=== PATIENT | male | born 1965 | race Caucasian/White ===

== ENCOUNTER 2023-09-09 09:06 | Outpatient (OUT) | payer BC, SELFPAY ==
--- NOTE | 2023-09-09 | XR_ITS ---
[address] [address] Patient Name: JOHN SOTO MRN: [id number] date: 1965 Sex: M Assigned Patient Location: RAD Current Patient Location: RAD Accession/Order Number: [id number] Exam Date: 09/09/2023 09:15 Report Date: 09/09/2023 09:54 At the request of: KURTIS MCDONALD Procedure: XR foot RT min 3V PROCEDURE: XR foot RT min 3V COMPARISON: 08/16/2023 HISTORY: RIGHT FOOT PAIN FINDINGS: BONES:Stable oblique extra-articular fracture involving the mid to distal diaphysis of the fifth metatarsal with distraction up to 4 mm. No interval evidence of healing with no bony bridging. No new fracture or dislocation. Remote osteotomy of the first metatarsal with 2 screws. Lateral subluxation of the distal first toe overlapping the second and third toes SOFT TISSUES:Negative. No visible soft tissue swelling. EFFUSION:None visible. OTHER: Negative. XR/XR foot RT min 3V IMPRESSION: Stable distracted extra-articular fracture of the fifth metatarsal with no interval signs of healing Electronically authenticated by: DARREN MENDOZA Date: 09/09/2023 09:54
--- OUTSIDE RECORDS SUMMARY | 2023-09-09 09:09 | XMS_ITS | CCD ---
Author Name Unknown Address [address] [place] [address] Organization [facility] Care Team Providers Care Toe Laster Name Role Phone MD Nikhil Casiano Primary Care Provider [phone] JASON Shanks Attending Provider [phone] MD Natan Tate Attending Provider JASON Shanks Referring Provider Marcell Brown Unavailable MD Nikhil Casiano Primary Care Provider JASON Shanks Attending Provider JSAON Shanks Referring Provider MD Marcell Brown Attending Provider [phone] MD Natan Tate Attending Provider Marcell Brown. Attending Unavailable Marcell Brown Admitting Unavailable Nikhil Casiano Primary Care Unavailable MISTY DAY Attending Unavailable MISTY DAY Referring Unavailable Allergies Allergy Classification Reported Allergen(s) Allergy Type Date of Onset Reaction(s) Facility (7 sources) Penicillins; Translations: [Penicillins] Allergy to substance 9 [facility] (1 source) Penicillin Drug Allergy Unknown [facility] Other Medications Current Medications Medication Drug Class(es) Dates Sig (Normalized) Sig (Original) cholecalciferol 0.125 mg oral tablet (4 sources) Vitamin D Start: 06-11-2022 take 1 tablet by mouth once daily Cholecalciferol (Vitamin D3) (Vitamin D3) 125 mcg (5,000 unit) Tablet Active 125 MCG PO Daily June 10, 2022 11:00pm Problems Problem Classification Problem Date Documented Da te Episodic/Chronic Anal and rectal conditions (1 source) Anal and rectal polyp; Translations: [Rectal polyp] Episodic Diseases of white blood cells (5 sources) Leukopenia; Translations: [Decreased white blood cell count, unspecified] 06-11-2022 Chronic Diverticulosis and diverticulitis (1 source) Diverticular disease of colon; Translations: [Diverticulosis of intestine, part unspecified, without perforation or abscess without bleeding] Chronic Hemorrhoids (1 source) Hemorrhoids; Translations: [Unspecified hemorrhoids] Episodic Nutritional deficiencies (3 sources) Cobalamin deficiency; Translations: [Deficiency of other specified B group vitamins] 07-02-2022 Episodic Other screening for suspected conditions (not mental disorders or infectious disease) (6 sources) Patient encounter status; Translations: [Encounter for screening for malignant neoplasm of colon] 11-20-2018 Episodic Residual codes; unclassified (1 source) Sleep apnea; Translations: [Sleep apnea, unspecified] Chronic Residual codes; unclassified (1 source) Obstructive sleep apnea syndrome; Translations: [Obstructive sleep apnea (adult) (pediatric)] Chronic Residual codes; unclassified (1 source) Obstructive sleep apnea (adult) (pediatric) Chronic Residual codes; unclassified (1 source) Obstructive sleep apnea (adult)(pediatric); Translations: [Obstructive sleep apnea (adult) (pediatric)] Onset: 07-03-2022 Chronic Results Test Name Value Interpretation Reference Range Facility XR FOOT 3+ VIEWS RIGHTon XR FOOT 3+ VIEWS RIGHT EXAMINATION: XR F OOT 3+ VIEWS RIGHT, 08/16/2023 12:03 PM CLINICAL HISTORY: R/o fracture COMPARISON: None RIGHT FOOT FINDINGS: There are 2 metallic screws in the distal first metatarsal. There is a hallux valgus deformity. There are no lytic or sclerotic bone lesions. There is an oblique mildly displaced fracture of the fifth metatarsal. The joint spaces are preserved.. The soft tissues are within normal limits. There are no radiopaque foreign bodies in the soft tissues. IMPRESSION: There is a fracture of the fifth metatarsal. ELECTRONICALLY SIGNED BY: Daniel Vines MD Normal Not Available Albumin [Mass/volume] in Ser um or PlasmaOrdered By: Natan Tate on 10-18-2022 Albumin [Mass/Vol] 4.0 g/dL 2.9-4.4 [facility] IgA [Mass/volume] in Serum o r PlasmaOrdered By: Natan Tate on 06-11-2022 IgA [Mass/Vol] 173 mg/dL 90-386 [facility] IgG [Mass/volume] in Serum o r PlasmaOrdered By: Natan Tate on 06-11-2022 IgG [Mass/Vol] 834 mg/dL 603-1613 [facility] IgM [Mass/volume] in Serum o r PlasmaOrdered By: Natan Tate on 06-11-2022 IgM [Mass/Vol] 39 mg/dL 20-172 [facility] Comment on above: Performed at: [id number] [place] [address] [id number] Director: See Canseco PhD, Phone: [phone] Immunoglobulin light chains. kappa.free [Mass/volume] in SerumOrdered By: Natan Tate on 06-11-2022 Immunoglobulin light chains.kappa.free (S) [Mass/Vol] 15.9 mg/L 3.3-19.4 [facility] Immunoglobulin light chains. kappa.free/Immunoglobulin light chains.lambda.free [MassOrdered By: Natan Tate on 06-11-2022 Immunoglobulin light chains.kappa.free/Immuno globulin light chains.lambda.free (S) [Mass ratio] 1.75 0.26-1.65 [facility] Comment on above: Performed at: [id number] [place] [address] [id number] Director: See Canseco PhD, Phone: [phone] Immunoglobulin light chains. lambda.free [Mass/volume] in Serum or PlasmaOrdered By: Natan Tate on 06-11-2022 Immunoglobulin light chains.lambda.free [Mass/Vol] 9.1 mg/L 5.7-26.3 [facility] Laboratory - Chemistry and C hemistry - challengeOrdered By: Natan Tate on 06-11-2022 Cobalamin (Vitamin B12) [Mass/Vol] 245 pg/mL 180-914 [facility] No Panel InformationOrdered By: Natan Tate on 06-11-2022 Protein Electrophoresis M-Presley Not observed g/dL Not Observed [facility] Protein Electrophoresis Note See comment . [facility] Comment on above: Protein electrophore sis scan will follow via computer,mail, or ribbon hanking machine operator delivery.Performed at: [facility] [address] [id number] Director: See Canseco PhD, Phone: [phone] Serum Immunofixation See comment . [facility] Comment on above: No monoclonality det ected. Protein [Mass/volume] in Ser um or PlasmaOrdered By: Natan Tate on 06-11-2022 Protein [Mass/Vol] 6.7 g/dL 6.0-8.5 [facility] Serum globulin measurement ( mass/volume)Ordered By: Natan Tate on 06-11-2022 Globulin (S) [Mass/Vol] 2.7 g/dL 2.2-3.9 [facility] Serum or plasma albumin/glob ulin mass ratioOrdered By: Natan Tate on 06-11-2022 Albumin/Globulin [Mass ratio] 1.5 {ratio} 0.7-1.7 [facility] Serum or plasma alpha 1 glob ulin measurement by electrophoresis (mass/volume)Ordered By: Natan Tate on 06-11-2022 Alpha 1 globulin Elph [Mass/Vol] 0.2 g/dL 0.0-0.4 [facility] Serum or plasma alpha 2 glob ulin measurement by electrophoresis (mass/volume)Ordered By: Natan Tate on 06-11-2022 Alpha 2 globulin Elph [Mass/Vol] 0.7 g/dL 0.4-1.0 [facility] Serum or plasma beta globuli n measurement by electrophoresis (mass/volume)Ordered By: Natan Tate on 06-11-2022 Beta globulin Elph [Mass/Vol] 1.0 g/dL 0.7-1.3 [facility] Serum or plasma gamma globul in measurement by electrophoresis (mass/volume)Ordered By: Natan Tate on 06-11-2022 Gamma globulin Elph [Mass/Vol] 0.8 g/dL 0.4-1.8 [facility] Basophils Auto (Bld) [#/Vol] Ordered By: Ana Shanks on 06-05-2022 Basophils (Bld) [#/Vol] 0.0 10*3/uL 0.0-0.2 [facility] Basophils/100 WBC Auto (Bld) Ordered By: Ana Shanks on 06-05-2022 Basophils/100 WBC (Bld) 0.7 % . [facility] Eosinophils Auto (Bld) [#/Vo l]Ordered By: Ana Shanks on 06-05-2022 Eosinophils (Bld) [#/Vol] 0.0 10*3/uL 0.0-0.45 [facility] Eosinophils/100 WBC Auto (Bl d)Ordered By: Ana Shanks on 06-05-2022 Eosinophils/100 WBC (Bld) 1.4 % . [facility] Erythrocyte distribution wid th Auto (RBC) [Ratio]Ordered By: Ana Shanks on 06-05-2022 Erythrocyte distribution width (RBC) [Ratio] 12.2 % 12.0-14.8 [facility] Hematocrit Auto (Bld) [Volum e fraction]Ordered By: Ana Shanks on 06-05-2022 Hematocrit (Bld) [Volume fraction] 41.6 % 38.8-50.0 [facility] Hemoglobin [Mass/volume] in BloodOrdered By: Ana Shanks on 06-05-2022 Hemoglobin (Bld) [Mass/Vol] 14.1 g/dL 13.0-17.0 [facility] - Hematology and Cell countsOrdered By: Ana Shanks on 06-05-2022 Nucleated RBC/100 WBC (Bld) [Ratio] 0.1 % 0-0.5 [facility] Leukocytes [#/volume] in Blo od by Automated countOrdered By: Ana Shanks on 06-05-2022 WBC (Bld) [#/Vol] 3.5 10*3/uL 4.5-11.0 [facility] Lymphocytes Auto (Bld) [#/Vo l]Ordered By: Ana Shanks on 06-05-2022 Lymphocytes (Bld) [#/Vol] 0.9 10*3/uL 1.00-4.8 [facility] Lymphocytes/100 WBC Auto (Bl d)Ordered By: Ana Shanks on 06-05-2022 Lymphocytes/100 WBC (Bld) 26.4 % . [facility] MCH Auto (RBC) [Entitic mass ]Ordered By: Ana Shanks on 06-05-2022 MCH (RBC) [Entitic mass] 32.2 pg 27.5-35.2 [facility] MCHC Auto (RBC) [Mass/Vol]Or dered By: Ana Shanks on 06-05-2022 MCHC (RBC) [Mass/Vol] 33.9 g/dL 32.5-35.6 [facility] MCV Auto (RBC) [Entitic vol] Ordered By: Ana Shanks on 06-05-2022 MCV (RBC) [Entitic vol] 94.9 fL 83.5-101 [facility] Monocytes Auto (Bld) [#/Vol] Ordered By: Ana Shanks on 06-05-2022 Monocytes (Bld) [#/Vol] 0.3 10*3/uL 0.0-0.8 [facility] Monocytes/100 WBC Auto (Bld) Ordered By: Ana Shanks on 06-05-2022 Monocytes/100 WBC (Bld) 7.5 % . [facility] Neutrophils Auto (Bld) [#/Vo l]Ordered By: Ana Shanks on 06-05-2022 Neutrophils (Bld) [#/Vol] 2.2 10*3/uL 1.8-7.7 [facility] Neutrophils/100 WBC Auto (Bl d)Ordered By: Ana Shanks on 06-05-2022 Neutrophils/100 WBC (Bld) 64.0 % . [facility] Platelet mean volume Auto (B ld) [Entitic vol]Ordered By: Ana Shanks on 06-05-2022 Platelet mean volume (Bld) [Entitic vol] 7.0 fL 6.6-10.1 [facility] Platelets Auto (Bld) [#/Vol] Ordered By: Ana Shanks on 10-12-2022 Platelets (Bld) [#/Vol] 263 10*3/uL 150-450 [facility] RBC Auto (Bld) [#/Vol]Ordere d By: Ana Shanks on 06-05-2022 RBC (Bld) [#/Vol] 4.38 10*6/uL 3.90-5.[address] [facility] Albumin [Mass/volume] in Ser um or PlasmaOrdered By: Ana Shanks on 05-22-2022 Albumin [Mass/Vol] 4.2 g/dL 3.2-5.5 [facility] Basophils Auto (Bld) [#/Vol] Ordered By: Ana Shanks on 05-22-2022 Basophils (Bld) [#/Vol] 0.0 10*3/uL 0.0-0.2 [facility] Basophils/100 WBC Auto (Bld) Ordered By: Ana Shanks on 05-22-2022 Basophils/100 WBC (Bld) 0.6 % . [facility] Cholesterol [Mass/volume] in Serum or PlasmaOrdered By: Ana Shanks on 05-22-2022 Cholesterol [Mass/Vol] 218 mg/dL 140-200 [facility] Comment on above: Chol less than 200 m g/dl low riskChol 201-239 mg/dl borderline riskChol 240 mg/dl and greater high risk Cholesterol in LDL Calc [Mas s/Vol]Ordered By: Ana Shanks on 05-22-2022 Cholesterol in LDL [Mass/Vol] 141 mg/dL 0-100 [facility] Comment on above: LDL ATP III CLASSIFI CATIONLDL less than 100 mg/dL OptimalLDL 100-129 mg/dL Near or above optimalLDL 130-159 mg/dL Borderline highLDL 160-189 mg/dL HighLDL greater than 189 mg/dL Very high Cholesterol in VLDL Calc [Ma ss/Vol]Ordered By: Ana Shanks on 05-22-2022 Cholesterol in VLDL [Mass/Vol] 15 mg/dL [facility] Creatinine and Glomerular fi ltration rate.predicted panel (S/P/Bld)Ordered By: Ana Shanks on 05-22-2022 Creatinine [Mass/Vol] 0.95 mg/dL 0.64-1.27 [facility] Eosinophils Auto (Bld) [#/Vo l]Ordered By: Ana Shanks on 05-22-2022 Eosinophils (Bld) [#/Vol] 0.0 10*3/uL 0.0-0.45 [facility] Eosinophils/100 WBC Auto (Bl d)Ordered By: Ana Shanks on 05-22-2022 Eosinophils/100 WBC (Bld) 1.2 % . [facility] Erythrocyte distribution wid th Auto (RBC) [Ratio]Ordered By: Ana Shanks on 05-22-2022 Erythrocyte distribution width (RBC) [Ratio] 12.7 % 12.0-14.8 [facility] Estimated glomerular filtrat ion rate (GFR) non- AmericanOrdered By: Ana Shanks on 05-22-2022 GFR/1.73 sq M.predicted among non-blacks MDRD (S/P/Bld) [Vol rate/Area] > 60 mL/Min [facility] Globulin Calc (S) [Mass/Vol] Ordered By: Ana Shanks on 05-22-2022 Globulin (S) [Mass/Vol] 2.4 g/dL [facility] Hematocrit Auto (Bld) [Volum e fraction]Ordered By: Ana Shanks on 05-22-2022 Hematocrit (Bld) [Volume fraction] 45.7 % 38.8-50.0 [facility] Hemoglobin [Mass/volume] in BloodOrdered By: Ana Shanks on 05-22-2022 Hemoglobin (Bld) [Mass/Vol] 15.1 g/dL 13.0-17.0 [facility] - Hematology and Cell countsOrdered By: Ana Shanks on 05-22-2022 Nucleated RBC/100 WBC (Bld) [Ratio] 0.2 % 0-0.5 [facility] Leukocytes [#/volume] in Blo od by Automated countOrdered By: Ana Shanks on 05-22-2022 WBC (Bld) [#/Vol] 3.5 10*3/uL 4.5-11.0 [facility] Lymphocytes Auto (Bld) [#/Vo l]Ordered By: Ana Shanks on 05-22-2022 Lymphocytes (Bld) [#/Vol] 1.1 10*3/uL 1.00-4.8 [facility] Lymphocytes/100 WBC Auto (Bl d)Ordered By: Ana Shanks on 05-22-2022 Lymphocytes/100 WBC (Bld) 32.5 % . [facility] MCH Auto (RBC) [Entitic mass ]Ordered By: Ana Shanks on 05-22-2022 MCH (RBC) [Entitic mass] 31.8 pg 27.5-35.2 [facility] MCHC Auto (RBC) [Mass/Vol]Or dered By: Ana Shanks on 05-22-2022 MCHC (RBC) [Mass/Vol] 33.0 g/dL 32.5-35.6 [facility] MCV Auto (RBC) [Entitic vol] Ordered By: Ana Shanks on 05-22-2022 MCV (RBC) [Entitic vol] 96.2 fL 83.5-101 [facility] Monocytes Auto (Bld) [#/Vol] Ordered By: Ana Shanks on 05-22-2022 Monocytes (Bld) [#/Vol] 0.3 10*3/uL 0.0-0.8 [facility] Monocytes/100 WBC Auto (Bld) Ordered By: Ana Shanks on 05-22-2022 Monocytes/100 WBC (Bld) 8.3 % . [facility] Neutrophils Auto (Bld) [#/Vo l]Ordered By: Ana Shanks on 05-22-2022 Neutrophils (Bld) [#/Vol] 2.0 10*3/uL 1.8-7.7 [facility] Neutrophils/100 WBC Auto (Bl d)Ordered By: Ana Shanks on 05-22-2022 Neutrophils/100 WBC (Bld) 57.4 % . [facility] No Panel InformationOrdered By: Ana Shanks on 05-22-2022 Estimated GFR () > 60 mL/Min [facility] Comment on above: GFR estimated refere nce range: According to KDOQI guidelines, <60 ml/min/1.73m2 is sufficient to diagnose a patient with chronic kidney disease. Pharmacy Creatinine Clearance (Chem N/A [facility] Prostate Specific Antigen Screen 2.110 ng/mL 0.000-4.000 [facility] Platelet mean volume Auto (B ld) [Entitic vol]Ordered By: Ana Shanks on 05-22-2022 Platelet mean volume (Bld) [Entitic vol] 7.1 fL 6.6-10.1 [facility] Platelets Auto (Bld) [#/Vol] Ordered By: Ana Shanks on 05-22-2022 Platelets (Bld) [#/Vol] 276 10*3/uL 150-450 [facility] Protein [Mass/volume] in Ser um or PlasmaOrdered By: Ana Shanks on 05-22-2022 Protein [Mass/Vol] 6.6 g/dL 6.1-7.9 [facility] RBC Auto (Bld) [#/Vol]Ordere d By: Ana Shanks on 05-22-2022 RBC (Bld) [#/Vol] 4.75 10*6/uL 3.90-5.[address] [facility] Serum or plasma alanine bueno otransferase measurement without P-5'-P (enzymatic activiOrdered By: Ana Shanks on 05-22-2022 ALT No additional P-5'-P [Catalytic activity/Vol] 18 U/L 10-60 [facility] Serum or plasma albumin/glob ulin mass ratioOrdered By: Ana Shanks on 05-22-2022 Albumin/Globulin [Mass ratio] 1.8 {ratio} [facility] Serum or plasma alkaline joselo sphatase measurement (enzymatic activity/volume)Ordered By: Ana Shanks on 05-22-2022 ALP [Catalytic activity/Vol] 36 U/L 32-92 [facility] Serum or plasma anion gap de terminationOrdered By: Ana Shanks on 05-22-2022 Anion gap [Moles/Vol] 13.7 mmol/L 6.0-15.[address] [facility] Serum or plasma aspartate am inotransferase measurement (enzymatic activity/volume)Ordered By: Ana Shanks on 05-22-2022 AST [Catalytic activity/Vol] 21 U/L 10-42 [facility] Serum or plasma calcium melissa urement (mass/volume)Ordered By: Ana Shanks on 05-22-2022 Calcium [Mass/Vol] 9.5 mg/dL 8.2-10.2 [facility] Serum or plasma chloride aramis surement (moles/volume)Ordered By: Ana Shanks on 05-22-2022 Chloride [Moles/Vol] 100 mmol/L 95-114 [facility] Serum or plasma glucose melissa urement (mass/volume)Ordered By: Ana Shanks on 05-22-2022 Glucose [Mass/Vol] 120 mg/dL 70-100 [facility] Comment on above: ADA recommended refe rence rangeRandom Glucose Reference Range is dependent on time and content of last meal. Glucose of more than 200 mg/dL in a nonstressed, ambulatory subject supports the diagnosis of Diabetes Mellitus. Serum or plasma high density lipoprotein (HDL) cholesterol measurementOrdered By: Ana Shanks on 05-22-2022 Cholesterol in HDL [Mass/Vol] 61 mg/dL 29-71 [facility] Comment on above: HDL CHOL ATP-III CLA SSIFICATION Cardiovascular RiskHDL > or equal to 60 mg/dL LOWHDL < 40 mg/dL HIGH Serum or plasma potassium me asurement (moles/volume)Ordered By: Ana Shanks on 05-22-2022 Potassium [Moles/Vol] 4.1 mmol/L 3.5-5.1 [facility] Serum or plasma sodium measu rement (moles/volume)Ordered By: Ana Shanks on 05-22-2022 Sodium [Moles/Vol] 138 mmol/L 136-146 [facility] Serum or plasma total biliru bin measurement (mass/volume)Ordered By: Ana Shanks on 05-22-2022 Bilirubin [Mass/Vol] 0.7 mg/dL 0.3-1.2 [facility] Serum or plasma total carbon dioxide measurement (moles/volume)Ordered By: Ana Shanks on 05-22-2022 CO2 [Moles/Vol] 28.4 mmol/L 22.0-30.0 [facility] Serum or plasma total choles terol/high density lipoprotein (HDL) cholesterol mass ratOrdered By: Ana Shanks on 05-22-2022 Cholesterol.total/Choles terol in HDL [Mass ratio] 3.6 {ratio} <5.0 [facility] Serum or plasma urea nitroge n measurement (mass/volume)Ordered By: Ana Shanks on 05-22-2022 Urea nitrogen [Mass/Vol] 11 mg/dL 05-17 [facility] TSH DL <= 0.005 mIU/L QnOrde red By: Ana Shanks on 05-22-2022 TSH Qn 1.63 m[IU]/L 0.45-5.33 [facility] Thyroxine (T4) free [Mass/vo lume] in Serum or PlasmaOrdered By: Ana Shanks on 05-22-2022 Free T4 [Mass/Vol] 0.84 ng/dL 0.61-1.12 [facility] Triglyceride [Mass/volume] i n Serum or PlasmaOrdered By: Ana Shanks on 05-22-2022 Triglyceride [Mass/Vol] 79 mg/dL 35-149 [facility] Comment on above: TRIG ATP III CLASSIF ICATIONTRIG less than 150 mg/dL NormalTRIG 150-199 mg/dL Borderline highTRIG 200-500 mg/dL High TRIG greater than 500 mg/dL Very highStandard traceable to the Center for Disease Conrtrol and Prevention (CDC) test method. Vital Signs Date Time Vital Sign Value Performing Clinician Facility 07-03-2022 15:30-0500 Body height 185.42 cm Marcell Brown Other [facility] Other 07-03-2022 15:30-0500 Body mass index (BMI) [Ratio] 23.68 kg/m2 Marcell Brown Other [facility] Other 07-03-2022 15:30-0500 Body temperature 99.5 [degF] Marcell Brown Other [facility] Other 07-03-2022 15:30-0500 Body weight 81.42 kg Marcell Brown Other [facility] Other 07-03-2022 15:30-0500 Diastolic blood pressure 69 mm[Hg] Marcell Brown Other [facility] Other 07-03-2022 15:30-0500 SaO2% (BldA) [Mass fraction] 98 % Marcell Brown Other [facility] Other 07-03-2022 15:30-0500 Systolic blood pressure 106 mm[Hg] Marcell Brown Other [facility] Other 07-02-2022 09:27-0500 Body temperature 97.8 [degF] MD Nikhil Casiano Work Phone: [facility] 07-02-2022 09:27-0500 Body weight 80.73 kg MD Nikhil Casiano Work Phone: [facility] 07-02-2022 09:27-0500 Diastolic blood pressure 83 mm[Hg] MD Nikhil Casiano Work Phone: [facility] 07-02-2022 09:27-0500 Heart rate 56 /min MD Nikhil Casiano Work Phone: [facility] 07-02-2022 09:27-0500 Respiratory rate 16 /min MD Nikhil Casiano Work Phone: [facility] 07-02-2022 09:27-0500 SaO2% (BldA) [Mass fraction] 98 % MD Nikhil Casiano Work Phone: [facility] 07-02-2022 09:27-0500 Systolic blood pressure 122 mm[Hg] MD Nikhil Casiano Work Phone: [facility] 06-11-2022 09:22-0400 Body temperature 98 [degF] MD Nikhil Casiano Work Phone: [facility] 06-11-2022 09:22-0400 Body weight 81.19 kg MD Nikhil Casiano Work Phone: [facility] 06-11-2022 09:22-0400 Diastolic blood pressure 87 mm[Hg] MD Nikhil Casiano Work Phone: [facility] 06-11-2022 09:22-0400 Heart rate 54 /min MD Nikhil Casiano Work Phone: [facility] 06-11-2022 09:22-0400 Respiratory rate 16 /min MD Nikhil Casiano Work Phone: [facility] 06-11-2022 09:22-0400 SaO2% (BldA) [Mass fraction] 100 % MD Nikhil Casiano Work Phone: [facility] 06-11-2022 09:22-0400 Systolic blood pressure 139 mm[Hg] MD Nikhil Casiano Work Phone: [facility] 06-11-2022 09:03-0400 Body height 185.42 cm MD Nikhil Casiano Work Phone: [facility] Encounters Encounter Date Encounter Type Care Provider Facility Start: 08-16-2023 End: 08-17-2023 ambulatory MISTY DAY Not Available Start: 07-03-2022 End: 07-03-2022 Patient encounter procedure MD Nikhil Casiano Work Phone: [facility] Start: 07-03-2022 End: 07-03-2022 ambulatory MD Nikhil Casiano Work Phone: [facility] Work Phone: Start: 07-03-2022 Office outpatient ne w 30 minutes Marcell Brown [facility] Start: 07-02-2022 End: 07-02-2022 ambulatory MD Nikhil Casiano Work Phone: [facility] Work Phone: Start: 07-02-2022 End: 07-02-2022 Registered Recurring MD Nikhil Casiano Work Phone: [facility] Start: 06-18-2022 End: 06-18-2022 Patient encounter procedure MD Nikhil Casiano Work Phone: [facility] Start: 06-11-2022 End: 06-11-2022 ambulatory MD Nikhil Casiano Work Phone: [facility] Work Phone: Start: 06-11-2022 End: 06-11-2022 Registered Recurring MD Nikhil Casiano Work Phone: [facility] Start: 06-05-2022 End: 06-05-2022 ambulatory MD Nikhil Casiano Work Phone: [facility] Work Phone: Start: 06-05-2022 End: 06-05-2022 Patient encounter procedure MD Nikhil Casiano Work Phone: [facility] Start: 05-22-2022 End: 05-22-2022 Patient encounter procedure MD Nikhil Casiano Work Phone: [facility] Start: 05-13-2022 End: 05-13-2022 Patient encounter procedure MD Nikhil Casiano Work Phone: [facility] Procedures Date Procedure Procedure Detail Performing Clinician Start: 05-13-2022 Plain chest X-ray MD Tal Casiano Work Phone: Plan of Treatment Date Care Activity Detail Author Vitamin B12 measurement [facility] Payers Date Payer Category Payer Self-pay [id number] 2021 Unknown [id number] 1965 Unknown [id number] 1965 Unknown [id number] Private Health Insurance [employer] [id number] Unknown [id number] Social History Date Type Detail Facility Tobacco smoking status NHIS Unknown if ever smoked [facility] Work Phone: Start: 1965 Sex Assigned At Male [facility] Sex Assigned At Sex Assigned At Bir th [place] [employer] Other Evaluation note 07-03-2022 Note Date & Type Note Facility 07-03-2022 Evaluation note Encounter Date Diagnosis Assessment Notes Jun, Obstructive sleep apnea (ICD-10 - G47.33) Patient was referred for possible sleep apnea based on a history of intermittent snoring and persistent daytime fatigue. His home sleep test does show sleep apnea is indeed present, with an AHI that is bumping up against moderate range. There is some associated hypoxia as well. I reviewed these results with him and he expresses good understanding. However he is not sure he wants to pursue things any further. He reports that he feels well rested and states that he does not even snore every night he does not feel the fatigue is that bad and he does feel he can function well at baseline without treatment. I reviewed the medical and accident risks associated with untreated mild to moderate obstructive sleep apnea, including a statistical 50% increase in annual risk of heart attack and stroke we also discussed quality of life issues. I discussed treatment options in detail including oral appliance therapy, [facility] (though his AHI fell just below that threshold), and positive airway pressure treatment. After extensive discussion he states he just wants to think this over and does not want to make a follow-up appointment. We emphasized our availability if there is any way we can answer questions or be of any other assistance, and encouraged him to call if he did decide to go ahead with any form of treatment or had other questions Jun, Other The diagnosis of Sleep Apnea was reviewed in detail, and handout materials were provided. The patient expresses good understanding, We also reviewed the medical and accident risks associated with sleep apnea and excessive fatigue. The patient is advised to adhere to a proper sleep hygiene schedule and to assure adequate total sleep time; The patient was advised to continue efforts at progressive weight loss, including decreased overall caloric intake quantity and better food choices.The patient was advised to call or return any difficulties arise, including changes in symptoms and/or problems with treatment [facility] Other Consult note 06-11-2022 Note Date & Type Note Facility 06-11-2022 Consult note Note Date/Time June 11, 2022 2:51pm [facility] [place] [id number] Hem/Onc Consult Note - OP Signed Patient: John Hua MR#: [id number] : 1965 Acct:[id number] Age/Sex: 56 / M Type: REG RCR Copies to: MD Ana Jackson APRN, CNP~ HPI Date/Time of Service: Date of Service: 06/11/2022 Time of Service: 14:46 Referring Provider/PCP: Referring Provider: Ana Shanks APRN DEVELOPMENTAL EDUCATION INSTRUCTOR-C PCP: Nikhil Casiano MD - History of Present Illness Reason for Consultation: Leukopenia Chief Complaint: Patient is here today for a referral from Ana Shanks CNP for low white blood cell count HPI: Patient is a 56-year-old white gentleman man seen today for evaluation and management of leukopenia. Patient stated that he felt ill and thoughts he had COVID infection. He recovered after 3 days. CBC showed leukopenia without any other cytopenias. Repeat CBC few weeks later showed similar results. Going back in 2019 that was very similar leukopenia that resolved after few months. Patient is not taking medications other than vitamin D3. He certainly has not taking any medications known to cause this or other cytopenias. He has no significant history of alcohol consumption. Extensive review of systems is negative for connective tissue disorder. He has no symptoms of hypercalcemia. No symptoms or lab abnormalities to suggest chronic viral infection including viral hepatitis. No increased or significant intake of nonsteroidal anti-inflammatory medications [facility] - Medical History Medical History: Medical History (Last Reviewed 06/11/22 @ 09:13 by Jennifer Baires) No pertinent past medical history - Surgical History Surgical History: Surgical History (Last Updated 06/11/22 @ 09:13 by Jennifer Baires) H/O shoulder surgery S/P cervical disc replacement S/P foot surgery, right - Family History Family History: Family History (Last Updated 06/11/22 @ 09:15 by Jennifer Baires) Father Lung cancer Mother COPD (chronic obstructive pulmonary disease) Grandparent Cancer Grandchild No problems noted. Brother Heart attack Sister Diabetes - Social History Tobacco Type: cigarettes Substance Use Type: None Social History Comments: lives with his and daughter Home Medications & Allergies Allergies Penicillins Allergy (Verified 06/11/22 09:11) Rash Home Medications cholecalciferol (vitamin D3) 125 mcg (5,000 unit) tablet (Vitamin D3) 125 mcg PODAILY 06/11/22 [History Confirmed 06/11/22] Subjective Data Subjective/ROS - Narrative: CONSTITUTIONAL: No weight loss, fever, chills, weakness or fatigue. HEENT: Eyes: No visual loss, blurred vision, double vision or yellow sclerae. Ears, Nose, Throat: No hearing loss, epistaxis. SKIN: No rash or itching. CARDIOVASCULAR: No chest pain, chest pressure or chest discomfort. No palpitations or edema. RESPIRATORY: No shortness of breath, cough or hemoptysis. GASTROINTESTINAL: No dysphagia, nausea, vomiting or diarrhea. No abdominal pain,melena, hematochezia. GENITOURINARY: No dysuria, urinary frequency or urgency. NEUROLOGICAL: No headache, dizziness, syncope, numbness or tingling in the extremities. MUSCULOSKELETAL: No muscle, back pain, joint pain or stiffness. HEMATOLOGIC: No bleeding or bruising. LYMPHATICS: No enlarged nodes. PSYCHIATRIC: No history of depression or anxiety. ENDOCRINOLOGIC: No reports of sweating, cold or heat intolerance. No polyuria orpolydipsia. ALLERGIES: No history of asthma, hives, eczema or rhinitis. Objective - Height/Weight Height/Weight: Height 6 ft 1 in Weight 81.193 kg - Vital Signs Vital Signs: 06/11/22 09:22 Temperature 98.0 F Pulse Rate [Left Brachial] 54 L Respiratory Rate 16 Blood Pressure [Left Arm] 139/87 02 Sat by Pulse Oximetry 100 Oxygen Delivery Method Room Air Physical Exam Narrative: GENERAL APPEARANCE: Well developed, well nourished, in no acute distress. SKIN: Inspection of the skin reveals no rashes, ulcerations or petechiae. HEENT: The sclerae were anicteric and conjunctivae were pink and moist. EOMI, PERRLA. The oral mucosa is moist and clear. NECK: Supple and symmetric. There was no thyroid enlargement, and no tenderness,or masses were felt. CHEST: Normal contour without any kyphoscoliosis. LUNGS: Normal breath sounds on auscultation without rales, rhonchi, or crackles. CARDIOVASCULAR: S1 and S2, regular rate and rhythm, no murmurs, gallops, rubs. ABDOMEN: Soft, nontender, bowel sounds normal. No hepatosplenomegaly. No mass palpated. LYMPH NODES: No lymphadenopathy was appreciated in the neck, axillae or groin. MUSCULOSKELETAL: Gait was normal. There was no tenderness or effusions noted. Muscle strength and tone were normal. EXTREMITIES: No cyanosis, clubbing or edema. NEUROLOGIC: Alert and oriented x 3. Normal affect. Gait was normal. Sensation totouch was normal. - ECOG Performance Status ECOG Score: 0 Results - Labs Labs: Labs - Last 7 Days 06/11/22 10:23: Vitamin B12 245 Assessment and Plan (1) Leucopenia Mild with no associated neutropenia and no other cytopenias. We went over the differential diagnosis and possibilities. It could be due to transient viral infection which explains its findings in 2019 although he does not remember circumstances at the time. Or it could be chronic idiopathic leukopenia that normalizes on the stat full situations. Of medical conditions we will try noninvasive testing including B12 level and possibility of plasma cell dyscrasia; either as unlikely. We also discussed possibility of MDS which is always present. Would be unusual for just 1 cell line and such stability over 3years but that does not exclude it. Regardless I would not recommend bone marrow biopsy which is needed for this entity. To begin with the yield is low, treatment is mostly supportive which is not required in his case since he is notanemic. The only potentially curative treatment in MDS is bone marrow transplant which is only indicated in high-grade MDS. If this is MDS which is to begin with unlikely would be very low-grade MDS. In other words I would justobserve. If there is a possibility of transient viral infection we will recheckhis CBC in 3 to 4 weeks expecting improvement. 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 His PCP can keep an eye on his CBC and initially every 6 months for a year then every 12 months. If there is worsening in the WBC specially in the differential which has been excellent thus far or other cytopenias we will refer him back to hematology. Patient showed very good understanding and appreciation and he will return to office as needed - Time with Patient Coordination of Care & Counseling Time: Greater than 50% of time spent with patient was for coordination of care (as documented) and [id number] counseling of patient and/or family. Dictated By: Natan Tate MD DD/ 1446 Signed By: <Electronically signed by Natan Tate MD> 06/11/22 1459 [facility] Work Phone: Evaluation note Note Date & Type Note Facility Evaluation note No assessment information availa ble [facility] Work Phone: Evaluation note Note Date & Type Note Facility Evaluation note Diagnosis Onset Date Leucopenia acute [facility] Work Phone: Evaluation note Note Date & Type Note Facility Evaluation note Diagnosis Onset Date B12 deficiency acute Leucopenia acute [facility] Work Phone: History general Narrative - Reported Note Date & Type Note Facility History general Narrative - Reported Type Medical History Pneumothorax Medical History Hyperlipidemia Surgical History Back Surgery Surgical History Hammertoe Surgery Surgical History neck Surgical History shoulder Surgical History lung Surgical History toe Hospitalization History see above 2009 [facility] Other Progress note Note Date & Type Note Facility Progress note Note Date/Time July 02, 2022 9:30am [facility] at [address] [address] Hem/Onc Follow Up Note - OP Signed Patient: Jonh Hua MR#: [id number] : 1965 Acct:[id number] Age/Sex: 56 / M Type: REG RCR Copies to: MD Ana Jackson, STEAMER TENDER, FIELD SUPERVISOR~ Subjective Date/Time of Service: Date of Service: 07/02/2022 Time of Service: 09:30 Chief Complaint: Patient is here today for a follow up visit for leukopenia HPI: 06/11/22 consult Patient is a 56-year-old white gentleman man seen today for evaluation and management of leukopenia. Patient stated that he felt ill and thoughts he had COVID infection. He recovered after 3 days. CBC showed leukopenia without any other cytopenias. Repeat CBC few weeks later showed similar results. Going back in 2019 that was very similar leukopenia that resolved after few months. Patient is not taking medications other than vitamin D3. He certainly has not taking any medications known to cause this or other cytopenias. He has no significant history of alcohol consumption. Extensive review of systems is negative for connective tissue disorder. He has no symptoms of hypercalcemia. No symptoms or lab abnormalities to suggest chronic viral infection including viral hepatitis. No increased or significant intake of nonsteroidal anti-inflammatory medications 07/02/22 He continues with fatigue and can get winded going up flights of stairs otherwise he denies complaints paraprotein eval negative, b12 low PMFSH - Medical History Medical History: Medical History (Last Reviewed 06/11/22 @ 09:13 by Jennifer Baires) No pertinent past medical history - Surgical History Surgical History: Surgical History (Last Updated 06/11/22 @ 09:13 by Jennifer Baires) H/O shoulder surgery S/P cervical disc replacement S/P foot surgery, right - Family History Family History: Family History (Last Updated 06/11/22 @ 09:15 by Jennifer Baires) Father Lung cancer Mother COPD (chronic obstructive pulmonary disease) Grandparent Cancer Grandchild No problems noted. Brother Heart attack Sister Diabetes - Social History Tobacco Type: cigarettes Substance Use Type: None Social History Comments: lives with his and daughter Home Medications & Allergies Allergies Penicillins Allergy (Verified 07/02/22 09:26) Rash Home Medications cholecalciferol (vitamin D3) 125 mcg (5,000 unit) tablet (Vitamin D3) 125 mcg PODAILY 06/11/22 [History Confirmed 07/02/22] Objective - Height/Weight Height/Weight: Height 6 ft 1 in Weight 80.739 kg - Vital Signs Vital Signs: 07/02/22 09:27 Temperature 97.8 F Pulse Rate [Left Brachial] 56 L Respiratory Rate 16 Blood Pressure [Left Arm] 122/83 02 Sat by Pulse Oximetry 98 Oxygen Delivery Method Room Air Assessment and Plan (1) Leucopenia Mild with no associated neutropenia and no other cytopenias. We went over the differential diagnosis and possibilities. It could be due to transient viral infection which explains its findings in 2019 although he does not remember circumstances at the time. Or it could be chronic idiopathic leukopenia that normalizes on the stat full situations. Of medical conditions we will try noninvasive testing including B12 level and possibility of plasma cell dyscrasia; either as unlikely. We also discussed possibility of MDS which is always present. Would be unusual for just 1 cell line and such stability over 3 years but that does not exclude it. Regardless I would not recommend bone marrow biopsy which is needed for this entity. To begin with the yield is low, treatment is mostly supportive which is not required in his case since he is notanemic. The only potentially curative treatment in MDS is bone marrow transplant which is only indicated in high-grade MDS. If this is MDS which is to begin with unlikely would be very low-grade MDS. In other words I would justobserve. If there is a possibility of transient viral infection we will recheckhis CBC in 3 to 4 weeks expecting improvement. 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 His PCP can keep an eye on his CBC and initially every 6 months for a year then every 12 months. If there is worsening in the WBC specially in the differential which has been excellent thus far or other cytopenias we will refer him back to hematology. Patient showed very good understanding and appreciation and he will return to office as needed 07/02/22- His paraprotein evaluation was essentially negative with no monoclonality detected. His K/L ratio was slightly elevated but not concerning. He will follow-up only as needed, and will have routine lab work done with his PCP moving forward. Per previous recommendations, would do CBC at 6 months and 1year, then yearly after that. If his white blood cells drop or other cell line abnormalities develop, he should return to see us. (2) B12 deficiency Vitamin B12 level low on 06/11/22 Given that he will only follow with us PRN, we recommend he initiate monthly [id number] with his primary care office. - Time with Patient Coordination of Care & Counseling Time: Greater than 50% of time spent with patient was for coordination of care (as documented) and [id number] counseling of patient and/or family. Dictated By: Avril Haines APRN DD/ 9 Signed By: <Electronically signed by JASON Haines> 07/02/22 0957 [facility] Work Phone: Chief Complaint and Reason for Visit Chief Complaint J43.9 J44.9 R07.9 Chief Complaint J43.9 J44.9 R07.9 R00.1 Z83.3 Z13.220 Z12.5 R53.83 D72.819 Chief Complaint J43.9 J44.9 R07.9 R00.1 Z83.3 Z13.220 Z12.5 R53.83 D72.819 Abnormal white blood cells Chief Complaint J43.9 J44.9 R07.9 R00.1 Z83.3 Z13.220 Z12.5 R53.83 D72.819 r06.89 g47.19 Abnormal white blood cells Reason for Visit Leucopenia Chief Complaint J43.9 J44.9 R07.9 R00.1 Z83.3 Z13.220 Z12.5 R53.83 D72.819 r06.89 g47.19 Abnormal white blood cells r06.89 g47.19 Reason for Visit B12 deficiency Leucopenia Advance Directives No Advanced Directives Records Found Advance Directive Response Recorded Date/ Time Advance Directives No November 16 8:29am Advance Directive Response Recorded Date/ Time Advance Directives No November 16 7:29am Family History No Family History Records Found Relationship Condition Age at Onset Recorded Date/T nadya father Malignant neoplasm of lung Unknown Not Specified Chronic obstructive pulmonary disease Un known grandparent Malignant neoplasm Unknown brother Myocardial infarction Unknown sister Diabetes mellitus Unknown Summary Purpose Additional Source Comments Care Teams (unrecognized sec tion and content) Team Status: Inactive Member Role Status Dates Nikhil Casiano MD Primary Care Provider Active Ana Shanks APRN DEVELOPMENTAL EDUCATION INSTRUCTOR-C Attending Provider Active Team Status: Active Member Role Status Dates Nikhil Casiano MD Primary Care Provider Active Team Status: Active Member Role Status Dates Nikhil Casiano MD Primary Care Provider Active Natan Tate MD Attending Provider Active Ana Shanks APRN DEVELOPMENTAL EDUCATION INSTRUCTOR-Rosario Referring Provider Active Team Status: Inactive Member Role Status Dates Nikhil Casiano MD Primary Care Provider Active JASON Nick Referring Provider Active Marcell Brown MD Attending Provider Active Team Status: Inactive Member Role Status Dates Nikhil Casiano MD Primary Care Provider Active Marcell Brown MD Attending Provider Active Goals (unrecognized section and content) Goals may be documented in a n alternate sectionGoals may be documented in an alternate sectionGoals may be documented in an alternate sectionNo InformationGoals may be documented in an alternate sectionGoals may be documented in an alternate sectionGoals may be documented in an alternate section (unrecognized sect ion and content) No Status Records FoundNo Status Records Found INFORMATION SOURCE (unrecogn ized section and content) DATE CREATED AUTHOR 08/09/2023 [facility] DATE CREATED AUTHOR AUTHOR'S ORGANIZ ATION 08/21/2023 [facility] EPIC FOR RECORDS PERTAINING TO PATIENTS WHO ARE OR HAVE BEEN ENROLLED IN A CHEMICAL DEPENDENCY/SUBSTANCEABUSE PROGRAM, SOME INFORMATION MAY BE OMITTED. This clinical summary was aggregated from multiple sources. Caution should be exercised in using it in the provision of clinical care. This summary normalizes information from multiple sources, and as a consequence, information in this document may materially change the coding, format and clinical context of patient data. In addition, data may be omitted in some cases. CLINICAL DECISIONS SHOULD BE BASED ON THE PRIMARY CLINICAL RECORDS. [facility] [employer] provides no warranty or guarantee of the accuracy or completeness of information in this document.
== END 2023-09-09 09:07 | disposition home or self-care (01) ==
LOC: RAD 09:06
PROVIDERS: Visit Provider Podiatrist Foot & Ankle Surgery
DX: M79.671 Pain in right foot (principal); S92.351G Displaced fracture of fifth metatarsal bone, right foot, subsequent encounter for fracture with delayed healing
CPT/HCPCS: 73630

== ENCOUNTER 2023-10-01 14:10 | Outpatient (OUT) | payer BC, SELFPAY ==
--- NOTE | 2023-10-01 | XR_ITS ---
The [address] [address] Patient Name: JOHN SOTO MRN: [id number] date: 1965 Sex: M Assigned Patient Location: RAD Current Patient Location: RAD Accession/Order Number: [id number] Exam Date: 10/01/2023 14:28 Report Date: 10/01/2023 15:42 At the request of: KURTIS MCDONALD Procedure: XR foot RT min 3V PROCEDURE: XR foot RT min 3V COMPARISON: 09/09/2023, 08/16/2023 HISTORY: RIGHT FOOT PAIN FINDINGS: BONES:Stable oblique extra-articular fracture involving the mid to distal diaphysis of the fifth metatarsal with distraction up to 4 mm. No bony bridging is observed. Remote osteotomy and screw placement along the distal diaphysis and head of the first metatarsal. Valgus of the first toe with overlap of the second and third toes SOFT TISSUES:Negative. No visible soft tissue swelling. EFFUSION:None visible. OTHER: Negative. XR/XR foot RT min 3V IMPRESSION: Stable fifth metatarsal fracture with no signs of healing Electronically authenticated by: DARREN MENDOZA Date: 10/01/2023 15:42
--- OUTSIDE RECORDS SUMMARY | 2023-10-01 14:17 | XMS_ITS | CCD ---
Author Name Unknown Address [address] [facility] [facility] [address] [place] [address] Organization [facility] Care Team Providers Care Child Protective Services Specialist Name Role Phone MD Nikhil Casiano Primary Care Provider JASON Shanks Attending Provider MD Natan Tate Attending Provider JASON Shanks Referring Provider Marcell Brown Unavailable MD Nikhil Casiano Primary Care Provider JASON Shanks Attending Provider JASON Shanks Referring Provider MD Marcell Brown Attending Provider MD Natan Tate Attending Provider aMrcell Brown. Attending Unavailable Marcell Brown Admitting Unavailable Nikhil Casiano Primary Care Unavailable MISTY DAY Attending Unavailable MISTY DAY Referring Unavailable Allergies Allergy Classification Reported Allergen(s) Allergy Type Date of Onset Reaction(s) Facility (7 sources) Penicillins; Translations: [Penicillins] Allergy to substance 9 [facility] (1 source) Penicillin Drug Allergy Unknown [facility] Other Medications Current Medications Medication Drug Class(es) [...] on 10-18-2022 Albumin [Mass/Vol] 4.0 g/dL 2.9-4.4 [facility] IgA [Mass/volume] in Serum o r PlasmaOrdered By: Natan Tate on 06-11-2022 IgA [Mass/Vol] 173 mg/dL 90-[address] [facility] IgG [Mass/volume] in Serum o r PlasmaOrdered By: Natan Tate on 06-11-2022 IgG [Mass/Vol] 834 mg/dL 603-[address] [facility] IgM [Mass/volume] in Serum o r PlasmaOrdered By: Natan Tate on 06-11-2022 IgM [Mass/Vol] 39 mg/dL 20-[address] [facility] Comment on above: Performed at: [employer] [place] [address] [id number] Director: See Canseco PhD, Phone: [phone] Immunoglobulin light chains. kappa.free [Mass/volume] in SerumOrdered By: Natan Tate on 06-11-2022 Immunoglobulin light chains.kappa.free (S) [Mass/Vol] 15.9 mg/L 3.3-19.[address] [facility] Immunoglobulin light chains. kappa.free/Immunoglobulin light chains.lambda.free [MassOrdered By: Natan Tate on 06-11-2022 Immunoglobulin light chains.kappa.free/Immuno globulin light chains.lambda.free (S) [Mass ratio] 1.75 0.26-1.[address] [facility] Comment on above: Performed at: [employer] [place] [address] [id number] Director: See Canseco PhD, Phone: [phone] Immunoglobulin light chains. lambda.free [Mass/volume] in Serum or PlasmaOrdered By: Natan Tate on 06-11-2022 Immunoglobulin light chains.lambda.free [Mass/Vol] 9.1 mg/L 5.7-26.[address] [facility] Laboratory - Chemistry and C hemistry - challengeOrdered By: Natan Tate on 06-11-2022 Cobalamin (Vitamin B12) [Mass/Vol] 245 pg/mL 180-[address] [facility] No Panel InformationOrdered By: Natan Tate on 06-11-2022 Protein Electrophoresis M-Presley Not observed g/dL Not Observed [facility] Protein Electrophoresis Note See comment . [facility] Comment on above: Protein electrophore sis scan will follow via computer,mail, or pile driver operator helper delivery.Performed at: [facility] [employer] [id number] Director: See Canseco PhD, Phone: [phone] Serum Immunofixation See comment . [facility] Comment on above: No monoclonality det ected. Protein [Mass/volume] in Ser um or PlasmaOrdered By: Natan Tate on 06-11-2022 Protein [Mass/Vol] 6.7 g/dL 6.0-8.5 [facility] Serum globulin measurement ( mass/volume)Ordered By: Natan Tate on 06-11-2022 Globulin (S) [Mass/Vol] 2.7 g/dL 2.2-3.9 [place] Serum or plasma albumin/glob ulin mass ratioOrdered By: Natna Tate on 06-11-2022 Albumin/Globulin [Mass ratio] 1.5 {ratio} 0.7-1.[address] [facility] Serum or plasma alpha 1 glob ulin measurement by electrophoresis (mass/volume)Ordered By: Natan Tate on 06-11-2022 Alpha 1 globulin Elph [Mass/Vol] 0.2 g/dL 0.0-0.[address] [facility] Serum or plasma alpha 2 glob ulin measurement by electrophoresis (mass/volume)Ordered By: Natan Tate on 06-11-2022 Alpha 2 globulin Elph [Mass/Vol] 0.7 g/dL 0.4-1.[address] [facility] Serum or plasma beta globuli n measurement by electrophoresis (mass/volume)Ordered By: Natan Tate on 06-11-2022 Beta globulin Elph [Mass/Vol] 1.0 g/dL 0.7-1.[address] [facility] Serum or plasma gamma globul in measurement by electrophoresis (mass/volume)Ordered By: Natan Tate on 06-11-2022 Gamma globulin Elph [Mass/Vol] 0.8 g/dL 0.4-1.[address] [facility] Basophils Auto (Bld) [#/Vol] Ordered By: Ana Shanks on 06-05-2022 Basophils (Bld) [#/Vol] 0.0 10*3/uL 0.0-0.[address] [facility] Basophils/100 WBC Auto (Bld) Ordered By: nAa Shanks on 06-05-2022 Basophils/100 WBC (Bld) 0.7 % . [facility] Eosinophils Auto (Bld) [#/Vo l]Ordered By: Ana Shanks on 06-05-2022 Eosinophils (Bld) [#/Vol] 0.0 10*3/uL 0.0-0.[address] [facility] Eosinophils/100 WBC Auto (Bl d)Ordered By: Ana Shanks on 06-05-2022 Eosinophils/100 WBC (Bld) 1.4 % . [facility] Erythrocyte distribution wid th Auto (RBC) [Ratio]Ordered By: Ana Shanks on 06-05-2022 Erythrocyte distribution width (RBC) [Ratio] 12.2 % 12.0-14.[address] [facility] Hematocrit Auto (Bld) [Volum e fraction]Ordered By: Ana Shanks on 06-05-2022 Hematocrit (Bld) [Volume fraction] 41.6 % 38.8-50.[address] [facility] Hemoglobin [Mass/volume] in BloodOrdered By: Ana Shanks on 06-05-2022 Hemoglobin (Bld) [Mass/Vol] 14.1 g/dL 13.0-17.[address] [facility] Laboratory - Hematology and Cell countsOrdered By: Ana Shanks on 06-05-2022 Nucleated RBC/100 WBC (Bld) [Ratio] 0.1 % 0-0.[address] [facility] Leukocytes [#/volume] in Blo od by Automated countOrdered By: Ana Shanks on 06-05-2022 WBC (Bld) [#/Vol] 3.5 10*3/uL 4.5-11.0 [facility] Lymphocytes Auto (Bld) [#/Vo l]Ordered By: Ana Shanks on 06-05-2022 Lymphocytes (Bld) [#/Vol] 0.9 10*3/uL 1.00-4.[address] [facility] Lymphocytes/100 WBC Auto (Bl d)Ordered By: Ana Shanks on 06-05-2022 Lymphocytes/100 WBC (Bld) 26.4 % . [facility] MCH Auto (RBC) [Entitic mass ]Ordered By: Ana Shanks on 06-05-2022 MCH (RBC) [Entitic mass] 32.2 pg 27.5-35.[address] [facility] MCHC Auto (RBC) [Mass/Vol]Or dered By: Ana Shanks on 06-05-2022 MCHC (RBC) [Mass/Vol] 33.9 g/dL 32.5-35.6 [facility] MCV Auto (RBC) [Entitic vol] Ordered By: Ana Shanks on 06-05-2022 MCV (RBC) [Entitic vol] 94.9 fL 83.5-101 [facility] Monocytes Auto (Bld) [#/Vol] Ordered By: Ana Shanks on 06-05-2022 Monocytes (Bld) [#/Vol] 0.3 10*3/uL 0.0-0.[address] [facility] Monocytes/100 WBC Auto (Bld) Ordered By: Ana Shanks on 06-05-2022 Monocytes/100 WBC (Bld) 7.5 % . [facility] Neutrophils Auto (Bld) [#/Vo l]Ordered By: Ana Shanks on 06-05-2022 Neutrophils (Bld) [#/Vol] 2.2 10*3/uL 1.8-7.[address] [facility] Neutrophils/100 WBC Auto (Bl d)Ordered By: Ana Shanks on 06-05-2022 Neutrophils/100 WBC (Bld) 64.0 % . [facility] Platelet mean volume Auto (B ld) [Entitic vol]Ordered By: Ana Shanks on 06-05-2022 Platelet mean volume (Bld) [Entitic vol] 7.0 fL 6.6-10.[address] [facility] Platelets Auto (Bld) [#/Vol] Ordered By: Ana Shanks on 10-12-2022 Platelets (Bld) [#/Vol] 263 10*3/uL 150-[address] [facility] RBC Auto (Bld) [#/Vol]Ordere d By: Ana Shanks on 06-05-2022 RBC (Bld) [#/Vol] 4.38 10*6/uL 3.90-5.60 [facility] Albumin [Mass/volume] in Ser um or PlasmaOrdered By: Ana Shanks on 05-22-2022 Albumin [Mass/Vol] 4.2 g/dL 3.2-5.5 [facility] Basophils Auto (Bld) [#/Vol] Ordered By: Ana Shanks on 05-22-2022 Basophils (Bld) [#/Vol] 0.0 10*3/uL 0.0-0.[address] [facility] Basophils/100 WBC Auto (Bld) Ordered By: Ana Shanks on 05-22-2022 Basophils/100 WBC (Bld) 0.6 % . [facility] Cholesterol [Mass/volume] in Serum or PlasmaOrdered By: Ana Shanks on 05-22-2022 Cholesterol [Mass/Vol] 218 mg/dL 140-200 [facility] Comment on above: Chol less than 200 m g/dl low riskChol 201-239 mg/dl borderline riskChol 240 mg/dl and greater high risk Cholesterol in LDL Calc [Mas s/Vol]Ordered By: Ana Shanks on 05-22-2022 Cholesterol in LDL [Mass/Vol] 141 mg/dL 0-[address] [facility] Comment on above: LDL ATP III CLASSIFI CATIONLDL less than 100 mg/dL OptimalLDL 100-129 mg/dL Near or above optimalLDL 130-159 mg/dL Borderline highLDL 160-189 mg/dL HighLDL greater than 189 mg/dL Very high Cholesterol in VLDL Calc [Ma ss/Vol]Ordered By: Ana Shanks on 05-22-2022 Cholesterol in VLDL [Mass/Vol] 15 mg/dL [facility] Creatinine and Glomerular fi ltration rate.predicted panel (S/P/Bld)Ordered By: Ana Shanks on 05-22-2022 Creatinine [Mass/Vol] 0.95 mg/dL 0.64-1.27 [facility] Eosinophils Auto (Bld) [#/Vo l]Ordered By: Ana Shanks on 05-22-2022 Eosinophils (Bld) [#/Vol] 0.0 10*3/uL 0.0-0.[address] [facility] Eosinophils/100 WBC Auto (Bl d)Ordered By: Ana Shanks on 05-22-2022 Eosinophils/100 WBC (Bld) 1.2 % . [facility] Erythrocyte distribution wid th Auto (RBC) [Ratio]Ordered By: Ana Shanks on 05-22-2022 Erythrocyte distribution width (RBC) [Ratio] 12.7 % 12.0-14.[address] [facility] Estimated glomerular filtrat ion rate (GFR) non- AmericanOrdered By: Ana Shanks on 05-22-2022 GFR/1.73 sq M.predicted among non-blacks MDRD (S/P/Bld) [Vol rate/Area] > 60 mL/Min [facility] Globulin Calc (S) [Mass/Vol] Ordered By: Ana Shanks on 05-22-2022 Globulin (S) [Mass/Vol] 2.4 g/dL [facility] Hematocrit Auto (Bld) [Volum e fraction]Ordered By: Ana Shanks on 05-22-2022 Hematocrit (Bld) [Volume fraction] 45.7 % 38.8-50.[address] [facility] Hemoglobin [Mass/volume] in BloodOrdered By: Ana Shanks on 05-22-2022 Hemoglobin (Bld) [Mass/Vol] 15.1 g/dL 13.0-17.[address] [facility] Laboratory - Hematology and Cell countsOrdered By: Ana Shanks on 05-22-2022 Nucleated RBC/100 WBC (Bld) [Ratio] 0.2 % 0-0.[address] [facility] Leukocytes [#/volume] in Blo od by Automated countOrdered By: Ana Shanks on 05-22-2022 WBC (Bld) [#/Vol] 3.5 10*3/uL 4.5-11.0 [facility] Lymphocytes Auto (Bld) [#/Vo l]Ordered By: Ana Shanks on 05-22-2022 Lymphocytes (Bld) [#/Vol] 1.1 10*3/uL 1.00-4.[address] [facility] Lymphocytes/100 WBC Auto (Bl d)Ordered By: Ana Shanks on 05-22-2022 Lymphocytes/100 WBC (Bld) 32.5 % . [facility] MCH Auto (RBC) [Entitic mass ]Ordered By: Ana Shanks on 05-22-2022 MCH (RBC) [Entitic mass] 31.8 pg 27.5-35.[address] [facility] MCHC Auto (RBC) [Mass/Vol]Or dered By: Ana Shanks on 05-22-2022 MCHC (RBC) [Mass/Vol] 33.0 g/dL 32.5-35.6 [facility] MCV Auto (RBC) [Entitic vol] Ordered By: Ana Shanks on 05-22-2022 MCV (RBC) [Entitic vol] 96.2 fL 83.5-101 [facility] Monocytes Auto (Bld) [#/Vol] Ordered By: Ana Shanks on 05-22-2022 Monocytes (Bld) [#/Vol] 0.3 10*3/uL 0.0-0.[address] [facility] Monocytes/100 WBC Auto (Bld) Ordered By: Ana Shanks on 05-22-2022 Monocytes/100 WBC (Bld) 8.3 % . [facility] Neutrophils Auto (Bld) [#/Vo l]Ordered By: Ana Shanks on 05-22-2022 Neutrophils (Bld) [#/Vol] 2.0 10*3/uL 1.8-7.[address] [facility] Neutrophils/100 WBC Auto (Bl d)Ordered By: Ana Shanks on 05-22-2022 Neutrophils/100 WBC (Bld) 57.4 % . [facility] No Panel InformationOrdered By: Ana Shanks on 05-22-2022 Estimated GFR () > 60 mL/Min [facility] Comment on above: GFR estimated refere nce range: According to KDOQI guidelines, <60 ml/min/1.73m2 is sufficient to diagnose a patient with chronic kidney disease. Pharmacy Creatinine Clearance (Chem N/A [facility] Prostate Specific Antigen Screen 2.110 ng/mL 0.000-4.[address] [facility] Platelet mean volume Auto (B ld) [Entitic vol]Ordered By: Ana Shanks on 05-22-2022 Platelet mean volume (Bld) [Entitic vol] 7.1 fL 6.6-10.[address] [facility] Platelets Auto (Bld) [#/Vol] Ordered By: Ana Shanks on 05-22-2022 Platelets (Bld) [#/Vol] 276 10*3/uL 150-[address] [facility] Protein [Mass/volume] in Ser um or PlasmaOrdered By: Ana Shanks on 05-22-2022 Protein [Mass/Vol] 6.6 g/dL 6.1-7.9 [facility] RBC Auto (Bld) [#/Vol]Ordere d By: Ana Shanks on 05-22-2022 RBC (Bld) [#/Vol] 4.75 10*6/uL 3.90-5.60 [facility] Serum or plasma alanine bueno otransferase measurement without P-5'-P (enzymatic activiOrdered By: Ana Shanks on 05-22-2022 ALT No additional P-5'-P [Catalytic activity/Vol] 18 U/L 10-60 [facility] Serum or plasma albumin/glob ulin mass ratioOrdered By: Ana Shanks on 05-22-2022 Albumin/Globulin [Mass ratio] 1.8 {ratio} [facility] Serum or plasma alkaline joselo sphatase measurement (enzymatic activity/volume)Ordered By: Ana Shanks on 05-22-2022 ALP [Catalytic activity/Vol] 36 U/L 32-[address] [facility] Serum or plasma anion gap de terminationOrdered By: Ana Shanks on 05-22-2022 Anion gap [Moles/Vol] 13.7 mmol/L 6.0-15.0 [facility] Serum or plasma aspartate am inotransferase measurement (enzymatic activity/volume)Ordered By: Ana Shanks on 05-22-2022 AST [Catalytic activity/Vol] 21 U/L 10-[address] [facility] Serum or plasma calcium melissa urement (mass/volume)Ordered By: Ana Shanks on 05-22-2022 Calcium [Mass/Vol] 9.5 mg/dL 8.2-10.2 [facility] Serum or plasma chloride aramis surement (moles/volume)Ordered By: Ana Shanks on 05-22-2022 Chloride [Moles/Vol] 100 mmol/L 95-114 [facility] Serum or plasma glucose melissa urement (mass/volume)Ordered By: Ana Shanks on 05-22-2022 Glucose [Mass/Vol] 120 mg/dL 70-100 [facility] Comment on above: ADA recommended refe rence rangeRandom Glucose Reference Range is dependent on time and content of last meal. Glucose of more than 200 mg/dL in a nonstressed, ambulatory subject supports the diagnosis of Diabetes Mellitus. Serum or plasma high density lipoprotein (HDL) cholesterol measurementOrdered By: Ana Shanks on 05-22-2022 Cholesterol in HDL [Mass/Vol] 61 mg/dL 29-[address] [facility] Comment on above: HDL CHOL ATP-III CLA SSIFICATION Cardiovascular RiskHDL > or equal to 60 mg/dL LOWHDL < 40 mg/dL HIGH Serum or plasma potassium me asurement (moles/volume)Ordered By: Ana Shanks on 05-22-2022 Potassium [Moles/Vol] 4.1 mmol/L 3.5-5.1 [facility] Serum or plasma sodium measu rement (moles/volume)Ordered By: Ana Shanks on 05-22-2022 Sodium [Moles/Vol] 138 mmol/L 136-146 [facility] Serum or plasma total biliru bin measurement (mass/volume)Ordered By: Ana Shanks on 05-22-2022 Bilirubin [Mass/Vol] 0.7 mg/dL 0.3-1.2 [facility] Serum or plasma total carbon dioxide measurement (moles/volume)Ordered By: Ana Shanks on 05-22-2022 CO2 [Moles/Vol] 28.4 mmol/L 22.0-30.0 [facility] Serum or plasma total choles terol/high density lipoprotein (HDL) cholesterol mass ratOrdered By: Ana Shanks on 05-22-2022 Cholesterol.total/Choles terol in HDL [Mass ratio] 3.6 {ratio} <5.[address] [facility] Serum or plasma urea nitroge n measurement (mass/volume)Ordered By: Ana Shanks on 05-22-2022 Urea nitrogen [Mass/Vol] 11 mg/dL 05-[address] [facility] TSH DL <= 0.005 mIU/L QnOrde red By: Ana Shanks on 05-22-2022 TSH Qn 1.63 m[IU]/L 0.45-5.[address] [facility] Thyroxine (T4) free [Mass/vo lume] in Serum or PlasmaOrdered By: Ana Shanks on 05-22-2022 Free T4 [Mass/Vol] 0.84 ng/dL 0.61-1.12 [facility] Triglyceride [Mass/volume] i n Serum or PlasmaOrdered By: Ana Shanks on 05-22-2022 Triglyceride [Mass/Vol] 79 mg/dL 35-149 [facility] Comment on above: TRIG ATP III CLASSIF ICATIONTRIG less than 150 mg/dL NormalTRIG 150-199 mg/dL Borderline highTRIG 200-500 mg/dL High TRIG greater than 500 mg/dL Very highStandard traceable to the Center for Disease Conrtrol and Prevention (CDC) test method. Vital Signs Date Time Vital Sign Value Performing Clinician Facility 07-03-2022 15:30-0500 Body height 185.42 cm Marcell Brown Other [facility] Other 07-03-2022 15:30-0500 Body mass index (BMI) [Ratio] 23.68 kg/m2 Marcell Brown Other [facility] Other 07-03-2022 15:30-0500 Body temperature 99.5 [degF] Marcell Brown Other [facility] Other 07-03-2022 15:30-0500 Body weight 81.42 kg Marcell Brown Other [facility] Other 07-03-2022 15:30-0500 Diastolic blood pressure 69 mm[Hg] Marcell Brown Other [facility] Other 07-03-2022 15:30-0500 SaO2% (BldA) [Mass fraction] 98 % Marcell Brown Other [facility] Other 07-03-2022 15:30-0500 Systolic blood pressure 106 mm[Hg] Marcell Brown Other [facility] Other 07-02-2022 09:27-0500 Body temperature 97.8 [degF] MD Nikhil Casiano Work Phone: [facility] 07-02-2022 09:27-0500 Body weight 80.73 kg MD Nikhil Casiano Work Phone: [facility] 07-02-2022 09:27-0500 Diastolic blood pressure 83 mm[Hg] MD Nikhil Casiano Work Phone: [facility] 07-02-2022 09:27-0500 Heart rate 56 /min MD Nikhil Casiano Work Phone: [facility] 07-02-2022 09:27-0500 Respiratory rate 16 /min MD Nikhil Casiano Work Phone: [facility] 07-02-2022 09:27-0500 SaO2% (BldA) [Mass fraction] 98 % MD Nikhil Casiano Work Phone: [facility] 07-02-2022 09:27-0500 Systolic blood pressure 122 mm[Hg] MD Nikhil Casiano Work Phone: [facility] 06-11-2022 09:22-0400 Body temperature 98 [degF] MD Nikhil Casiano Work Phone: [facility] 06-11-2022 09:22-0400 Body weight 81.19 kg MD Nikhil Casiano Work Phone: [facility] 06-11-2022 09:22-0400 Diastolic blood pressure 87 mm[Hg] MD Nikhil Casiano Work Phone: [facility] 06-11-2022 09:22-0400 Heart rate 54 /min MD Nikhil Casiano Work Phone: [facility] 06-11-2022 09:22-0400 Respiratory rate 16 /min MD Nikhil Casiano Work Phone: [facility] 06-11-2022 09:22-0400 SaO2% (BldA) [Mass fraction] 100 % MD Nikhil Casiano Work Phone: [facility] 06-11-2022 09:22-0400 Systolic blood pressure 139 mm[Hg] MD Nikhil Casiano Work Phone: [facility] 06-11-2022 09:03-0400 Body height 185.42 cm MD Nikhil Casiano Work Phone: [facility] Encounters Encounter Date Encounter Type Care Provider Facility Start: 08-16-2023 End: 08-17-2023 ambulatory MISTY DAY Not Available Start: 07-03-2022 End: 07-03-2022 Patient encounter procedure MD Nikhil Casiano Work Phone: [facility] Start: 07-03-2022 End: 07-03-2022 ambulatory MD Nikhil Casiano Work Phone: [facility] Work Phone: Start: 07-03-2022 Office outpatient ne w 30 minutes Marcell Brown [facility] Start: 07-02-2022 End: 07-02-2022 ambulatory MD Nikhil Casiano Work Phone: [facility] Work Phone: Start: 07-02-2022 End: 07-02-2022 Registered Recurring MD Nikhil Casiano Work Phone: [facility] Start: 06-18-2022 End: 06-18-2022 Patient encounter procedure MD Nikhil Casiano Work Phone: [facility] Start: 06-11-2022 End: 06-11-2022 ambulatory MD Nikhil Casiano Work Phone: [facility] Work Phone: Start: 06-11-2022 End: 06-11-2022 Registered Recurring MD Nikhil Casiano Work Phone: [facility] Start: 06-05-2022 End: 06-05-2022 ambulatory MD Nikhil Casiano Work Phone: [facility] Work Phone: Start: 06-05-2022 End: 06-05-2022 Patient encounter procedure MD Nikhil Casiano Work Phone: [facility] Start: 05-22-2022 End: 05-22-2022 Patient encounter procedure MD Nikhil Casiano Work Phone: [facility] Start: 05-13-2022 End: 05-13-2022 Patient encounter procedure MD Nikhil Casiano Work Phone: [facility] Procedures Date Procedure Procedure Detail Performing Clinician Start: 05-13-2022 Plain chest X-ray MD Tal Casiano Work Phone: Plan of Treatment Date Care Activity Detail Author Vitamin B12 measurement [facility] Payers Date Payer Category Payer Self-pay [id number] 2021 Unknown [id number] 1965 Unknown [id number] 1965 Unknown [id number] Private Health Insurance [employer] [id number] Unknown [id number] Social History Date Type Detail Facility Tobacco smoking status NHIS Unknown if ever smoked [facility] Work Phone: Start: 1965 Sex Assigned At Male [facility] Sex Assigned At Sex Assigned At Bir th [place] [id number] Other Evaluation note 07-03-2022 Note Date & [...] changes in symptoms and/or problems with treatment [facility] Other Consult note 06-11-2022 Note Date & Type Note Facility 06-11-2022 Consult note Note Date/Time June 11, 2022 2:51pm [facility] [place] [id number] Hem/Onc Consult Note - OP Signed Patient: John Hua MR#: [id number] : 1965 Acct:[id number] Age/Sex: 56 / M Type: REG RCR Copies to: MD Ana Jackson APRN, CNP~ HPI Date/Time of Service: Date of Service: 06/11/2022 Time of Service: 14:46 Referring Provider/PCP: Referring Provider: Ana Shanks APRN STATION OPERATOR-C PCP: Nikhil Casiano MD - History of [...] or significant intake of nonsteroidal anti-inflammatory medications [facility]LY [facility] - Medical History Medical History: Medical History [...] no indication or need to continue with ostomy nurse surveillance. His PCP can keep an eye [...] for coordination of care (as documented) and [id number] counseling of patient and/or family. Dictated By: Natan Tate MD DD/ [id number] Signed By: <Electronically signed by Natan Tate MD> 06/11/22 1459 [facility] Work Phone: Evaluation note Note Date & Type Note Facility Evaluation note No assessment information availa ble [facility] Work Phone: Evaluation note Note Date & Type Note Facility Evaluation note Diagnosis Onset Date Leucopenia acute [facility] Work Phone: Evaluation note Note Date & Type Note Facility Evaluation note Diagnosis Onset Date B12 deficiency acute Leucopenia acute [facility] Work Phone: History general Narrative - Reported Note Date & Type Note Facility History general Narrative - Reported Type Medical History Pneumothorax Medical History Hyperlipidemia Surgical History Back Surgery Surgical History Hammertoe Surgery Surgical History neck Surgical History shoulder Surgical History lung Surgical History toe Hospitalization History see above 2009 [facility] Other Progress note Note Date & Type Note Facility Progress note Note Date/Time July 02, 2022 9:30am [facility] at [address] [address] Hem/Onc Follow Up Note - OP Signed Patient: John Hua MR#: [id number] : 1965 Acct:[id number] Age/Sex: 56 / M Type: REG RCR Copies to: MD Ana Jackson, NURSING FACULTY, SURVEILLANCE TECHNICIAN~ Subjective Date/Time of Service: Date of Service: [...] no indication or need to continue with ostomy nurse surveillance. His PCP can keep an eye [...] us PRN, we recommend he initiate monthly [id number] with his primary care office. - Time with Patient Coordination of Care & Counseling Time: Greater than 50% of time spent with patient was for coordination of care (as documented) and [id number] counseling of patient and/or family. Dictated By: Avril Haines APRN DD/ 9 Signed By: <Electronically signed by JASON Haines> 07/02/22 0957 [facility] Work Phone: Chief Complaint and Reason for [...] Primary Care Provider Active Ana Shanks APRN STATION OPERATOR-C Attending Provider Active Team Status: Active Member Role Status Dates Nikhil Casiano MD Primary Care Provider Active Team Status: Active Member Role Status Dates Nikhil Casiano MD Primary Care Provider Active Natan Tate MD Attending Provider Active Ana Shanks APRN STATION OPERATOR-Rosario Referring Provider Active Team Status: Inactive Member [...] section and content) DATE CREATED AUTHOR 08/09/2023 [facility] DATE CREATED AUTHOR AUTHOR'S ORGANIZ ATION 08/21/2023 [facility] EPIC FOR RECORDS PERTAINING TO [...] BE BASED ON THE PRIMARY CLINICAL RECORDS. [facility] [employer] provides no warranty or guarantee of the accuracy or completeness of information in this document.
== END 2023-10-01 14:11 | disposition home or self-care (01) ==
LOC: RAD 14:10
PROVIDERS: Visit Provider Podiatrist Foot & Ankle Surgery
DX: M79.671 Pain in right foot (principal); S92.351G Displaced fracture of fifth metatarsal bone, right foot, subsequent encounter for fracture with delayed healing
CPT/HCPCS: 73630

== ENCOUNTER 2023-11-06 15:03 | Outpatient (OUT) | payer BC, SELFPAY ==
--- NOTE | 2023-11-06 | XR_ITS ---
The [address] [address] Patient Name: JOHN SOTO MRN: [id number] date: 1965 Sex: M Assigned Patient Location: Current Patient Location: Accession/Order Number: [id number] Exam Date: 11/06/2023 15:05 Report Date: 11/08/2023 09:08 At the request of: YNES ELIZONDO Procedure: XR foot RT min 3V PROCEDURE: XR foot RT min 3V HISTORY: RIGHT FOOT PAIN COMPARISON: XR foot right 10/01/2023 FINDINGS: BONES:Long, oblique fracture of the 5th metatarsal diaphysis with 2 mm separation and minimally increased density of the fracture line. Marked lateral deviation of the first toe. 2 screws within first metatarsal from prior repair. SOFT TISSUES:No visible soft tissue swelling. EFFUSION:None visible. OTHER: Negative. XR/XR foot RT min 3V IMPRESSION: 1. Mildly displaced 5th metatarsal fracture with mild fracture line density suggesting early bone healing; increase compared to prior study. 2. Stable surgical changes and degenerative changes of first toe. Electronically authenticated by: KALYN FLOWERS Date: 11/08/2023 09:08
--- OUTSIDE RECORDS SUMMARY | 2023-11-06 15:25 | XMS_ITS | CCD ---
Author Name Unknown Address [address] [place] [address] Organization [facility] Care Team Providers Care Wind Up Operator Name Role Phone MD Nikhil Casiano Primary Care Provider JASON Shanks Attending Provider MD Natan Tate Attending Provider JASON Shanks Referring Provider Marcell Brown Unavailable MD Nikhil Casiano Primary Care Provider [phone] JASON Shanks Attending Provider JASON Shanks Referring Provider MD Marcell Brown Attending Provider MD Natan Tate Attending Provider Marcell Brown. Attending Unavailable Marcell Brown Admitting Unavailable Nikhil Casiano Primary Care Unavailable MISTY DAY Attending Unavailable MISTY DAY Referring Unavailable Allergies Allergy Classification Reported Allergen(s) Allergy Type Date of Onset Reaction(s) Facility (7 sources) Penicillins; Translations: [Penicillins] Allergy to substance 9 [facility] (1 source) Penicillin Drug Allergy Unknown [employer] Other Medications Current Medications Medication Drug Class(es) [...] on 10-18-2022 Albumin [Mass/Vol] 4.0 g/dL 2.9-4.4 [facility] IgA [Mass/volume] in Serum o r PlasmaOrdered By: Natan Tate on 06-11-2022 IgA [Mass/Vol] 173 mg/dL 90-386 [facility] IgG [Mass/volume] in Serum o r PlasmaOrdered By: Natan Tate on 06-11-2022 IgG [Mass/Vol] 834 mg/dL 603-1613 [facility] IgM [Mass/volume] in Serum o r PlasmaOrdered By: Natan Tate on 06-11-2022 IgM [Mass/Vol] 39 mg/dL 20-172 [facility] Comment on above: Performed at: [facility] [place] [address] [id number] Director: See Canseco PhD, Phone: [phone] Immunoglobulin light chains. kappa.free [Mass/volume] in SerumOrdered By: Natan Tate on 06-11-2022 Immunoglobulin light chains.kappa.free (S) [Mass/Vol] 15.9 mg/L 3.3-19.4 [facility] Immunoglobulin light chains. kappa.free/Immunoglobulin light chains.lambda.free [MassOrdered By: Natan Tate on 06-11-2022 Immunoglobulin light chains.kappa.free/Immuno globulin light chains.lambda.free (S) [Mass ratio] 1.75 0.26-1.65 [facility] Comment on above: Performed at: [facility] [place] [address] [id number] Director: See Canseco PhD, Phone: [phone] Immunoglobulin light chains. lambda.free [Mass/volume] in Serum or PlasmaOrdered By: Natan Tate on 06-11-2022 Immunoglobulin light chains.lambda.free [Mass/Vol] 9.1 mg/L 5.7-26.3 [facility] Laboratory - Chemistry and C hemistry - challengeOrdered By: Natan Tate on 06-11-2022 Cobalamin (Vitamin B12) [Mass/Vol] 245 pg/mL 180-914 [facility] No Panel InformationOrdered By: Natan Tate on 06-11-2022 Protein Electrophoresis M-Presley Not observed g/dL Not Observed [facility] Protein Electrophoresis Note See comment . [facility] Comment on above: Protein electrophore sis scan will follow via computer,mail, or data developer delivery.Performed at: [facility] [employer] [id number] Director: See Canseco PhD, Phone: [phone] Serum Immunofixation See comment . [facility] Comment on above: No monoclonality det ected. Protein [Mass/volume] in Ser um or PlasmaOrdered By: Natan Tate on 06-11-2022 Protein [Mass/Vol] 6.7 g/dL 6.0-8.5 [facility] Serum globulin measurement ( mass/volume)Ordered By: Natan Tate on 06-11-2022 Globulin (S) [Mass/Vol] 2.7 g/dL 2.2-3.9 [facility] Serum or plasma albumin/glob ulin mass ratioOrdered By: Natan Tate on 06-11-2022 Albumin/Globulin [Mass ratio] 1.5 {ratio} 0.7-1.7 [facility] Serum or plasma alpha 1 glob ulin measurement by electrophoresis (mass/volume)Ordered By: Natan Tate on 06-11-2022 Alpha 1 globulin Elph [Mass/Vol] 0.2 g/dL 0.0-0.4 [facility] Serum or plasma alpha 2 glob ulin measurement by electrophoresis (mass/volume)Ordered By: Natan Tate on 06-11-2022 Alpha 2 globulin Elph [Mass/Vol] 0.7 g/dL 0.4-1.0 [facility] Serum or plasma beta globuli n measurement by electrophoresis (mass/volume)Ordered By: Natan Tate on 06-11-2022 Beta globulin Elph [Mass/Vol] 1.0 g/dL 0.7-1.3 [facility] Serum or plasma gamma globul in measurement by electrophoresis (mass/volume)Ordered By: Natan Tate on 06-11-2022 Gamma globulin Elph [Mass/Vol] 0.8 g/dL 0.4-1.8 [facility] Basophils Auto (Bld) [#/Vol] Ordered By: Aan Shanks on 06-05-2022 Basophils (Bld) [#/Vol] 0.0 10*3/uL 0.0-0.2 [facility] Basophils/100 WBC Auto (Bld) Ordered By: Ana Shanks on 06-05-2022 Basophils/100 WBC (Bld) 0.7 % . [facility] Eosinophils Auto (Bld) [#/Vo l]Ordered By: Ana Shanks on 06-05-2022 Eosinophils (Bld) [#/Vol] 0.0 10*3/uL 0.0-0.45 [facility] Eosinophils/100 WBC Auto (Bl d)Ordered By: Ana Shanks on 06-05-2022 Eosinophils/100 WBC (Bld) 1.4 % . [facility] Erythrocyte distribution wid th Auto (RBC) [Ratio]Ordered By: Ana Shanks on 06-05-2022 Erythrocyte distribution width (RBC) [Ratio] 12.2 % 12.0-14.8 [facility] Hematocrit Auto (Bld) [Volum e fraction]Ordered By: Ana Shanks on 06-05-2022 Hematocrit (Bld) [Volume fraction] 41.6 % 38.8-50.0 [facility] Hemoglobin [Mass/volume] in BloodOrdered By: Ana Shanks on 06-05-2022 Hemoglobin (Bld) [Mass/Vol] 14.1 g/dL 13.0-17.0 [facility] Laboratory - Hematology and Cell countsOrdered By: Ana Shanks on 06-05-2022 Nucleated RBC/100 WBC (Bld) [Ratio] 0.1 % 0-0.5 [facility] Leukocytes [#/volume] in Blo od by Automated countOrdered By: Ana Shanks on 06-05-2022 WBC (Bld) [#/Vol] 3.5 10*3/uL 4.5-11.0 [facility] Lymphocytes Auto (Bld) [#/Vo l]Ordered By: Ana Shanks on 06-05-2022 Lymphocytes (Bld) [#/Vol] 0.9 10*3/uL 1.00-4.8 [facility] Lymphocytes/100 WBC Auto (Bl d)Ordered By: Ana Shanks on 06-05-2022 Lymphocytes/100 WBC (Bld) 26.4 % . [facility] MCH Auto (RBC) [Entitic mass ]Ordered By: Ana Shanks on 06-05-2022 MCH (RBC) [Entitic mass] 32.2 pg 27.5-35.2 [facility] MCHC Auto (RBC) [Mass/Vol]Or dered By: Ana Shanks on 06-05-2022 MCHC (RBC) [Mass/Vol] 33.9 g/dL 32.5-35.6 [facility] MCV Auto (RBC) [Entitic vol] Ordered By: Ana Shanks on 06-05-2022 MCV (RBC) [Entitic vol] 94.9 fL 83.5-101 [facility] Monocytes Auto (Bld) [#/Vol] Ordered By: Ana Shanks on 06-05-2022 Monocytes (Bld) [#/Vol] 0.3 10*3/uL 0.0-0.8 [facility] Monocytes/100 WBC Auto (Bld) Ordered By: Ana Shanks on 06-05-2022 Monocytes/100 WBC (Bld) 7.5 % . [facility] Neutrophils Auto (Bld) [#/Vo l]Ordered By: Ana Shanks on 06-05-2022 Neutrophils (Bld) [#/Vol] 2.2 10*3/uL 1.8-7.7 [facility] Neutrophils/100 WBC Auto (Bl d)Ordered By: Ana Shanks on 06-05-2022 Neutrophils/100 WBC (Bld) 64.0 % . [facility] Platelet mean volume Auto (B ld) [Entitic vol]Ordered By: Ana Shanks on 06-05-2022 Platelet mean volume (Bld) [Entitic vol] 7.0 fL 6.6-10.1 [facility] Platelets Auto (Bld) [#/Vol] Ordered By: Ana Shanks on 10-12-2022 Platelets (Bld) [#/Vol] 263 10*3/uL 150-450 [facility] RBC Auto (Bld) [#/Vol]Ordere d By: Ana Shanks on 06-05-2022 RBC (Bld) [#/Vol] 4.38 10*6/uL 3.90-5.60 [facility] Albumin [Mass/volume] in Ser um or PlasmaOrdered By: Ana Shnaks on 05-22-2022 Albumin [Mass/Vol] 4.2 g/dL 3.2-5.5 [facility] Basophils Auto (Bld) [#/Vol] Ordered By: Ana Shanks on 05-22-2022 Basophils (Bld) [#/Vol] 0.0 10*3/uL 0.0-0.2 [facility] Basophils/100 WBC Auto (Bld) Ordered By: Ana Shanks on 05-22-2022 Basophils/100 WBC (Bld) 0.6 % . [facility] Cholesterol [Mass/volume] in Serum or PlasmaOrdered By: Ana Shanks on 05-22-2022 Cholesterol [Mass/Vol] 218 mg/dL 140-200 [facility] Comment on above: Chol less than 200 m g/dl low riskChol 201-239 mg/dl borderline riskChol 240 mg/dl and greater high risk Cholesterol in LDL Calc [Mas s/Vol]Ordered By: Ana Shanks on 05-22-2022 Cholesterol in LDL [Mass/Vol] 141 mg/dL 0-100 [facility] Comment on above: LDL ATP III CLASSIFI CATIONLDL less than 100 mg/dL OptimalLDL 100-129 mg/dL Near or above optimalLDL 130-159 mg/dL Borderline highLDL 160-189 mg/dL HighLDL greater than 189 mg/dL Very high Cholesterol in VLDL Calc [Ma ss/Vol]Ordered By: Ana Shanks on 05-22-2022 Cholesterol in VLDL [Mass/Vol] 15 mg/dL [facility] Creatinine and Glomerular fi ltration rate.predicted panel (S/P/Bld)Ordered By: Ana Shanks on 05-22-2022 Creatinine [Mass/Vol] 0.95 mg/dL 0.64-1.27 [facility] Eosinophils Auto (Bld) [#/Vo l]Ordered By: Ana Shanks on 05-22-2022 Eosinophils (Bld) [#/Vol] 0.0 10*3/uL 0.0-0.45 [facility] Eosinophils/100 WBC Auto (Bl d)Ordered By: Ana Shanks on 05-22-2022 Eosinophils/100 WBC (Bld) 1.2 % . [facility] Erythrocyte distribution wid th Auto (RBC) [Ratio]Ordered By: Ana Shanks on 05-22-2022 Erythrocyte distribution width (RBC) [Ratio] 12.7 % 12.0-14.8 [facility] Estimated glomerular filtrat ion rate (GFR) non- AmericanOrdered By: Ana Shanks on 05-22-2022 GFR/1.73 sq M.predicted among non-blacks MDRD (S/P/Bld) [Vol rate/Area] > 60 mL/Min [facility] Globulin Calc (S) [Mass/Vol] Ordered By: Ana Shanks on 05-22-2022 Globulin (S) [Mass/Vol] 2.4 g/dL [facility] Hematocrit Auto (Bld) [Volum e fraction]Ordered By: Ana Shanks on 05-22-2022 Hematocrit (Bld) [Volume fraction] 45.7 % 38.8-50.0 [facility] Hemoglobin [Mass/volume] in BloodOrdered By: Ana Shanks on 05-22-2022 Hemoglobin (Bld) [Mass/Vol] 15.1 g/dL 13.0-17.0 [facility] Laboratory - Hematology and Cell countsOrdered By: Ana Shanks on 05-22-2022 Nucleated RBC/100 WBC (Bld) [Ratio] 0.2 % 0-0.5 [facility] Leukocytes [#/volume] in Blo od by Automated countOrdered By: Ana Shanks on 05-22-2022 WBC (Bld) [#/Vol] 3.5 10*3/uL 4.5-11.0 [facility] Lymphocytes Auto (Bld) [#/Vo l]Ordered By: Ana Shanks on 05-22-2022 Lymphocytes (Bld) [#/Vol] 1.1 10*3/uL 1.00-4.8 [facility] Lymphocytes/100 WBC Auto (Bl d)Ordered By: Ana Shanks on 05-22-2022 Lymphocytes/100 WBC (Bld) 32.5 % . [facility] MCH Auto (RBC) [Entitic mass ]Ordered By: Ana Shanks on 05-22-2022 MCH (RBC) [Entitic mass] 31.8 pg 27.5-35.2 [facility] MCHC Auto (RBC) [Mass/Vol]Or dered By: Ana Shanks on 05-22-2022 MCHC (RBC) [Mass/Vol] 33.0 g/dL 32.5-35.6 [facility] MCV Auto (RBC) [Entitic vol] Ordered By: Ana Shanks on 05-22-2022 MCV (RBC) [Entitic vol] 96.2 fL 83.5-101 [facility] Monocytes Auto (Bld) [#/Vol] Ordered By: Ana Shanks on 05-22-2022 Monocytes (Bld) [#/Vol] 0.3 10*3/uL 0.0-0.8 [facility] Monocytes/100 WBC Auto (Bld) Ordered By: Ana Shanks on 05-22-2022 Monocytes/100 WBC (Bld) 8.3 % . [facility] Neutrophils Auto (Bld) [#/Vo l]Ordered By: Ana Shanks on 05-22-2022 Neutrophils (Bld) [#/Vol] 2.0 10*3/uL 1.8-7.7 [facility] Neutrophils/100 WBC Auto (Bl d)Ordered By: Ana Shanks on 05-22-2022 Neutrophils/100 WBC (Bld) 57.4 % . [facility] No Panel InformationOrdered By: Ana Shanks on 05-22-2022 Estimated GFR () > 60 mL/Min [facility] Comment on above: GFR estimated refere nce range: According to KDOQI guidelines, <60 ml/min/1.73m2 is sufficient to diagnose a patient with chronic kidney disease. Pharmacy Creatinine Clearance (Chem N/A [facility] Prostate Specific Antigen Screen 2.110 ng/mL 0.000-4.000 [facility] Platelet mean volume Auto (B ld) [Entitic vol]Ordered By: Ana Shanks on 05-22-2022 Platelet mean volume (Bld) [Entitic vol] 7.1 fL 6.6-10.1 [facility] Platelets Auto (Bld) [#/Vol] Ordered By: Ana Shanks on 05-22-2022 Platelets (Bld) [#/Vol] 276 10*3/uL 150-450 [facility] Protein [Mass/volume] in Ser um or PlasmaOrdered By: Ana Shanks on 05-22-2022 Protein [Mass/Vol] 6.6 g/dL 6.1-7.9 [facility] RBC Auto (Bld) [#/Vol]Ordere d By: Ana Shanks on 05-22-2022 RBC (Bld) [#/Vol] 4.75 10*6/uL 3.90-5.60 [facility] Serum or plasma alanine bueno otransferase measurement without P-5'-P (enzymatic activiOrdered By: Ana Shanks on 05-22-2022 ALT No additional P-5'-P [Catalytic activity/Vol] 18 U/L 10-60 [facility] Serum or plasma albumin/glob ulin mass ratioOrdered By: Ana Shanks on 05-22-2022 Albumin/Globulin [Mass ratio] 1.8 {ratio} [facility] Serum or plasma alkaline joselo sphatase measurement (enzymatic activity/volume)Ordered By: Ana Shanks on 05-22-2022 ALP [Catalytic activity/Vol] 36 U/L 32-92 [facility] Serum or plasma anion gap de terminationOrdered By: Ana Shanks on 05-22-2022 Anion gap [Moles/Vol] 13.7 mmol/L 6.0-15.0 [facility] Serum or plasma aspartate am inotransferase measurement (enzymatic activity/volume)Ordered By: Ana Shanks on 05-22-2022 AST [Catalytic activity/Vol] 21 U/L 10-42 [facility] Serum or plasma calcium melissa urement (mass/volume)Ordered By: Ana Shanks on 05-22-2022 Calcium [Mass/Vol] 9.5 mg/dL 8.2-10.2 [facility] Serum or plasma chloride aramis surement (moles/volume)Ordered By: Ana Shanks on 05-22-2022 Chloride [Moles/Vol] 100 mmol/L 95-114 [facility] Serum or plasma glucose melissa urement (mass/volume)Ordered By: Ana Shanks on 05-22-2022 Glucose [Mass/Vol] 120 mg/dL 70-100 [facility] Comment on above: ADA recommended refe rence rangeRandom Glucose Reference Range is dependent on time and content of last meal. Glucose of more than 200 mg/dL in a nonstressed, ambulatory subject supports the diagnosis of Diabetes Mellitus. Serum or plasma high density lipoprotein (HDL) cholesterol measurementOrdered By: Ana Shanks on 05-22-2022 Cholesterol in HDL [Mass/Vol] 61 mg/dL 29-71 [facility] Comment on above: HDL CHOL ATP-III CLA SSIFICATION Cardiovascular RiskHDL > or equal to 60 mg/dL LOWHDL < 40 mg/dL HIGH Serum or plasma potassium me asurement (moles/volume)Ordered By: Ana Shanks on 05-22-2022 Potassium [Moles/Vol] 4.1 mmol/L 3.5-5.1 [facility] Serum or plasma sodium measu rement (moles/volume)Ordered By: Ana Shanks on 05-22-2022 Sodium [Moles/Vol] 138 mmol/L 136-146 [facility] Serum or plasma total biliru bin measurement (mass/volume)Ordered By: Ana Shanks on 05-22-2022 Bilirubin [Mass/Vol] 0.7 mg/dL 0.3-1.2 [facility] Serum or plasma total carbon dioxide measurement (moles/volume)Ordered By: Ana Shanks on 05-22-2022 CO2 [Moles/Vol] 28.4 mmol/L 22.0-30.0 [facility] Serum or plasma total choles terol/high density lipoprotein (HDL) cholesterol mass ratOrdered By: Ana Shanks on 05-22-2022 Cholesterol.total/Choles terol in HDL [Mass ratio] 3.6 {ratio} <5.0 [facility] Serum or plasma urea nitroge n measurement (mass/volume)Ordered By: Ana Shanks on 05-22-2022 Urea nitrogen [Mass/Vol] 11 mg/dL 05-17 [facility] TSH DL <= 0.005 mIU/L QnOrde red By: Ana Shanks on 05-22-2022 TSH Qn 1.63 m[IU]/L 0.45-5.33 [facility] Thyroxine (T4) free [Mass/vo lume] in Serum or PlasmaOrdered By: Ana Shanks on 05-22-2022 Free T4 [Mass/Vol] 0.84 ng/dL 0.61-1.12 [facility] Triglyceride [Mass/volume] i n Serum or PlasmaOrdered By: Ana Shanks on 05-22-2022 Triglyceride [Mass/Vol] 79 mg/dL 35-149 [facility] Comment on above: TRIG ATP III CLASSIF ICATIONTRIG less than 150 mg/dL NormalTRIG 150-199 mg/dL Borderline highTRIG 200-500 mg/dL High TRIG greater than 500 mg/dL Very highStandard traceable to the Center for Disease Conrtrol and Prevention (CDC) test method. Vital Signs Date Time Vital Sign Value Performing Clinician Facility 07-03-2022 15:30-0500 Body height 185.42 cm Marcell Brown Other [employer] Other 07-03-2022 15:30-0500 Body mass index (BMI) [Ratio] 23.68 kg/m2 Marcell Brown Other [employer] Other 07-03-2022 15:30-0500 Body temperature 99.5 [degF] Marcell Brown Other [employer] Other 07-03-2022 15:30-0500 Body weight 81.42 kg Marcell Brown Other [employer] Other 07-03-2022 15:30-0500 Diastolic blood pressure 69 mm[Hg] Marcell Brown Other [employer] Other 07-03-2022 15:30-0500 SaO2% (BldA) [Mass fraction] 98 % Marcell Brown Other [employer] Other 07-03-2022 15:30-0500 Systolic blood pressure 106 mm[Hg] Marcell Brown Other [employer] Other 07-02-2022 09:27-0500 Body temperature 97.8 [degF] MD Nikhil Casiano Work Phone: [facility] 07-02-2022 09:27-0500 Body weight 80.73 kg MD Nikhil Casiano Work Phone: [facility] 07-02-2022 09:27-0500 Diastolic blood pressure 83 mm[Hg] MD Nikhil Casiano Work Phone: [facility] 07-02-2022 09:27-0500 Heart rate 56 /min MD Nikhil Casiano Work Phone: [facility] 07-02-2022 09:27-0500 Respiratory rate 16 /min MD Nikhil Casiano Work Phone: [facility] 07-02-2022 09:27-0500 SaO2% (BldA) [Mass fraction] 98 % MD Nikhil Casiano Work Phone: [facility] 07-02-2022 09:27-0500 Systolic blood pressure 122 mm[Hg] MD Nikhil Casiano Work Phone: [facility] 06-11-2022 09:22-0400 Body temperature 98 [degF] MD Nikhil Casiano Work Phone: [facility] 06-11-2022 09:22-0400 Body weight 81.19 kg MD Nikhil Casiano Work Phone: [facility] 06-11-2022 09:22-0400 Diastolic blood pressure 87 mm[Hg] MD Nikhil Casiano Work Phone: [facility] 06-11-2022 09:22-0400 Heart rate 54 /min MD Nikhil Casiano Work Phone: [facility] 06-11-2022 09:22-0400 Respiratory rate 16 /min MD Nikhil Casiano Work Phone: [facility] 06-11-2022 09:22-0400 SaO2% (BldA) [Mass fraction] 100 % MD Nikhil Casiano Work Phone: [facility] 06-11-2022 09:22-0400 Systolic blood pressure 139 mm[Hg] MD Nikhil Casiano Work Phone: [facility] 06-11-2022 09:03-0400 Body height 185.42 cm MD Nikhil Casiano Work Phone: [facility] Encounters Encounter Date Encounter Type Care Provider Facility Start: 08-16-2023 End: 08-17-2023 ambulatory MISTY DAY Not Available Start: 07-03-2022 End: 07-03-2022 Patient encounter procedure MD Nikhil Casiano Work Phone: [facility] Start: 07-03-2022 End: 07-03-2022 ambulatory MD Nikhil Casiano Work Phone: [facility] Work Phone: Start: 07-03-2022 Office outpatient ne w 30 minutes Marcell Brown [facility] Start: 07-02-2022 End: 07-02-2022 ambulatory MD Nikhil Casiano Work Phone: [facility] Work Phone: Start: 07-02-2022 End: 07-02-2022 Registered Recurring MD Nikhil Casiano Work Phone: [facility] Start: 06-18-2022 End: 06-18-2022 Patient encounter procedure MD Nikhil Casiano Work Phone: [facility] Start: 06-11-2022 End: 06-11-2022 ambulatory MD Nikhil Casiano Work Phone: [facility] Work Phone: Start: 06-11-2022 End: 06-11-2022 Registered Recurring MD Nikhil Casiano Work Phone: [facility] Start: 06-05-2022 End: 06-05-2022 ambulatory MD Nikhil Casiano Work Phone: [facility] Work Phone: Start: 06-05-2022 End: 06-05-2022 Patient encounter procedure MD Nikhil Casiano Work Phone: [facility] Start: 05-22-2022 End: 05-22-2022 Patient encounter procedure MD Nikhil Casiano Work Phone: [facility] Start: 05-13-2022 End: 05-13-2022 Patient encounter procedure MD Nikhil Casiano Work Phone: [facility] Procedures Date Procedure Procedure Detail Performing Clinician Start: 05-13-2022 Plain chest X-ray MD Tal Casiano Work Phone: Plan of Treatment Date Care Activity Detail Author Vitamin B12 measurement [facility] Payers Date Payer Category Payer Self-pay [id number] 2021 Unknown [id number] 1965 Unknown [id number] 1965 Unknown [id number] Private Health Insurance [employer] [id number] Unknown [id number] Social History Date Type Detail Facility Tobacco smoking status NHIS Unknown if ever smoked [facility] Work Phone: Start: 1965 Sex Assigned At Male [facility] Sex Assigned At Sex Assigned At [place] [employer] Other Evaluation note 07-03-2022 Note Date & [...] changes in symptoms and/or problems with treatment [employer] Other Consult note 06-11-2022 Note Date & Type Note Facility 06-11-2022 Consult note Note Date/Time June 11, 2022 2:51pm [facility] [place] [id number] Hem/Onc Consult Note - OP Signed Patient: John Hua MR#: [id number] : 1965 Acct:[id number] Age/Sex: 56 / M Type: REG RCR Copies to: MD Ana Jackson APRN, CNP~ HPI Date/Time of Service: Date of Service: 06/11/2022 Time of Service: 14:46 Referring Provider/PCP: Referring Provider: Ana Shanks APRN E [employer]ER[employer] DIRECTOR-C PCP: Nikhil Casiano MD - History of [...] or significant intake of nonsteroidal anti-inflammatory medications [facility] - Medical History Medical History: Medical History [...] 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 His PCP can keep an eye [...] for coordination of care (as documented) and [id number] counseling of patient and/or family. Dictated By: Natan Tate MD DD/ [id number] Signed By: <Electronically signed by Natan Tate MD> 06/11/22 1459 [facility] Work Phone: Evaluation note Note Date & Type Note Facility Evaluation note No assessment information availa ble [facility] Work Phone: Evaluation note Note Date & Type Note Facility Evaluation note Diagnosis Onset Date Leucopenia acute [facility] Work Phone: Evaluation note Note Date & Type Note Facility Evaluation note Diagnosis Onset Date B12 deficiency acute Leucopenia acute [facility] Work Phone: History general Narrative - Reported Note Date & Type Note Facility History general Narrative - Reported Type Medical History Pneumothorax Medical History Hyperlipidemia Surgical History Back Surgery Surgical History Hammertoe Surgery Surgical History neck Surgical History shoulder Surgical History lung Surgical History toe Hospitalization History see above 2009 [employer] Other Progress note Note Date & Type Note Facility Progress note Note Date/Time July 02, 2022 9:30am 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 His PCP can keep an eye [...] us PRN, we recommend he initiate monthly [id number] with his primary care office. - Time with Patient Coordination of Care & Counseling Time: Greater than 50% of time spent with patient was for coordination of care (as documented) and [id number] counseling of patient and/or family. Dictated By: Avril Haines APRN DD/ 9 Signed By: <Electronically signed by JASON Haines> 07/02/22 0957 [facility] Work Phone: Chief Complaint and Reason [...] Primary Care Provider Active Ana Shanks APRN [employer] DIRECTOR-C Attending Provider Active Team Status: Active Member Role Status Dates Nikhil Casiano MD Primary Care Provider Active Team Status: Active Member Role Status Dates Nikhil Casiano MD Primary Care Provider Active Natan Tate MD Attending Provider Active Ana Shanks APRN [employer] DIRECTOR-Rosario Referring Provider Active Team Status: Inactive Member [...] section and content) DATE CREATED AUTHOR 08/09/2023 [facility] DATE CREATED AUTHOR AUTHOR'S ORGANIZ ATION 08/21/2023 [facility] EPIC FOR RECORDS PERTAINING TO PATIENTS [...] BE BASED ON THE PRIMARY CLINICAL RECORDS. [facility] [employer] provides no warranty or guarantee of the accuracy or completeness of information in this document.
== END 2023-11-06 15:04 | disposition home or self-care (01) ==
LOC: EC 15:04
PROVIDERS: Visit Provider Physician Assistant
DX: M79.671 Pain in right foot (principal); S92.351D Displaced fracture of fifth metatarsal bone, right foot, subsequent encounter for fracture with routine healing
CPT/HCPCS: 73630

== ENCOUNTER 2023-12-02 09:43 | Outpatient (OUT) | payer BC, SELFPAY ==
--- NOTE | 2023-12-02 | XR_ITS ---
The [address] [address] Patient Name: JOHN SOTO MRN: [id number] date: 1965 Sex: M Assigned Patient Location: Current Patient Location: Accession/Order Number: [id number] Exam Date: 12/02/2023 09:45 Report Date: 12/02/2023 10:43 At the request of: KURTIS MCDONALD Procedure: XR foot RT min 3V PROCEDURE: XR foot RT min 3V COMPARISON: 11/06/2023 HISTORY: RIGHT FOOT PAIN FINDINGS: BONES:Persistent oblique fracture through the diaphysis of the fifth metatarsal with minimal inflammation. No significant bony bridging is observed [is measuring up to 2.5 mm. Remote osteotomy and screw placement at of the first metatarsal. Moderate hallux valgus SOFT TISSUES:Negative. No visible soft tissue swelling. EFFUSION:None visible. OTHER: Negative. XR/XR foot RT min 3V IMPRESSION: Stable fifth metatarsal fracture with mild bone formation but no definite bony bridging Electronically authenticated by: DARREN MENDOZA Date: 12/02/2023 10:43
--- OUTSIDE RECORDS SUMMARY | 2023-12-02 09:56 | XMS_ITS | CCD ---
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 Attending Unavailable Marcell Brown Admitting Unavailable Nikhil Casiano Primary Care Unavailable MISTY DAY Attending Unavailable MISTY DAY Referring Unavailable Allergies Allergy Classification Reported Allergen(s) Allergy Type Date of Onset Reaction(s) Facility (7 sources) Penicillins; Translations: [Penicillins] Allergy to substance 9 [facility] (1 source) Penicillin Drug Allergy [place] [facility] Other Medications Current Medications Medication Drug Class(es) [...] or PlasmaOrdered By: Natan Tate on 06-11-2022 Albumin [Mass/Vol] 4.0 g/dL 2.9-4.4 [facility] IgA [Mass/volume] in Serum o r PlasmaOrdered By: Natan Tate on 06-11-2022 IgA [Mass/Vol] 173 mg/dL 90-386 [facility] IgG [Mass/volume] in Serum o r PlasmaOrdered By: Natan Tate on 06-11-2022 IgG [Mass/Vol] 834 mg/dL 603-1613 [facility] IgM [Mass/volume] in Serum o r PlasmaOrdered By: Natan Tate on 06-11-2022 IgM [Mass/Vol] 39 mg/dL 20-172 [facility] Comment on above: Performed at: [employer] [facility] [address] [id number] Director: See Canseco PhD, Phone: [phone] Immunoglobulin light chains. kappa.free [Mass/volume] in SerumOrdered By: Natan Tate on 06-11-2022 Immunoglobulin light chains.kappa.free (S) [Mass/Vol] 15.9 mg/L 3.3-19.4 [facility] Immunoglobulin light chains. kappa.free/Immunoglobulin light chains.lambda.free [MassOrdered By: Natan Tate on 06-11-2022 Immunoglobulin light chains.kappa.free/Immuno globulin light chains.lambda.free (S) [Mass ratio] 1.75 0.26-1.65 [facility] Comment on above: Performed at: [facility] [address] [id number] Director: See Canseco PhD, Phone: [phone] Immunoglobulin light chains. lambda.free [Mass/volume] in Serum or PlasmaOrdered By: Natan Tate on 06-11-2022 Immunoglobulin light chains.lambda.free [Mass/Vol] 9.1 mg/L 5.7-26.3 [facility] Laboratory - Chemistry and C hemistry - challengeOrdered By: Natan Tate on 06-11-2022 Cobalamin (Vitamin B12) [Mass/Vol] 245 pg/mL 180-914 [facility] No Panel InformationOrdered By: Natan Tate on 06-11-2022 Protein Electrophoresis M-Presley Not observed g/dL Not Observed [facility] Protein Electrophoresis Note See comment . [facility] Comment on above: Protein electrophore sis scan will follow via computer,mail, or welding machine operator/tender delivery.Performed at: [facility] [facility] [id number] Director: See Canseco PhD, Phone: [phone] Serum Immunofixation See comment . [facility] Comment on above: No monoclonality det ected. Protein [Mass/volume] in Ser um or PlasmaOrdered By: Natan Tate on 06-11-2022 Protein [Mass/Vol] 6.7 g/dL 6.0-8.5 [facility] Serum globulin measurement ( mass/volume)Ordered By: Natan Tate on 06-11-2022 Globulin (S) [Mass/Vol] 2.7 g/dL 2.2-3.9 [facility] Serum or plasma albumin/glob ulin mass ratioOrdered By: Natan Tate on 06-11-2022 Albumin/Globulin [Mass ratio] 1.5 {ratio} 0.7-1.7 [facility] Serum or plasma alpha 1 glob ulin measurement by electrophoresis (mass/volume)Ordered By: Natan Tate on 06-11-2022 Alpha 1 globulin Elph [Mass/Vol] 0.2 g/dL 0.0-0.4 [facility] Serum or plasma alpha 2 glob ulin measurement by electrophoresis (mass/volume)Ordered By: Natan Tate on 06-11-2022 Alpha 2 globulin Elph [Mass/Vol] 0.7 g/dL 0.4-1.0 [facility] Serum or plasma beta globuli n measurement by electrophoresis (mass/volume)Ordered By: Natan Tate on 06-11-2022 Beta globulin Elph [Mass/Vol] 1.0 g/dL 0.7-1.3 [facility] Serum or plasma gamma globul in measurement by electrophoresis (mass/volume)Ordered By: Natan Tate on 06-11-2022 Gamma globulin Elph [Mass/Vol] 0.8 g/dL 0.4-1.8 [facility] Basophils Auto (Bld) [#/Vol] Ordered By: Ana Shanks on 06-05-2022 Basophils (Bld) [#/Vol] 0.0 10*3/uL 0.0-0.2 [facility] Basophils/100 WBC Auto (Bld) Ordered By: Ana Shanks on 06-05-2022 Basophils/100 WBC (Bld) 0.7 % . [facility] Eosinophils Auto (Bld) [#/Vo l]Ordered By: Ana Shanks on 06-05-2022 Eosinophils (Bld) [#/Vol] 0.0 10*3/uL 0.0-0.45 [facility] Eosinophils/100 WBC Auto (Bl d)Ordered By: Ana Shanks on 06-05-2022 Eosinophils/100 WBC (Bld) 1.4 % . [facility] Erythrocyte distribution wid th Auto (RBC) [Ratio]Ordered By: Ana Shanks on 06-05-2022 Erythrocyte distribution width (RBC) [Ratio] 12.2 % 12.0-14.8 [facility] Hematocrit Auto (Bld) [Volum e fraction]Ordered By: Ana Shanks on 06-05-2022 Hematocrit (Bld) [Volume fraction] 41.6 % 38.8-50.0 [facility] Hemoglobin [Mass/volume] in BloodOrdered By: Ana Shanks on 06-05-2022 Hemoglobin (Bld) [Mass/Vol] 14.1 g/dL 13.0-17.0 [facility] Laboratory - Hematology and Cell countsOrdered By: Ana Shanks on 06-05-2022 Nucleated RBC/100 WBC (Bld) [Ratio] 0.1 % 0-0.5 [facility] Leukocytes [#/volume] in Blo od by Automated countOrdered By: Ana Shanks on 06-05-2022 WBC (Bld) [#/Vol] 3.5 10*3/uL 4.5-11.0 [facility] Lymphocytes Auto (Bld) [#/Vo l]Ordered By: Ana Shanks on 06-05-2022 Lymphocytes (Bld) [#/Vol] 0.9 10*3/uL 1.00-4.8 [facility] Lymphocytes/100 WBC Auto (Bl d)Ordered By: Ana Shanks on 06-05-2022 Lymphocytes/100 WBC (Bld) 26.4 % . [facility] MCH Auto (RBC) [Entitic mass ]Ordered By: Ana Shanks on 06-05-2022 MCH (RBC) [Entitic mass] 32.2 pg 27.5-35.2 [facility] MCHC Auto (RBC) [Mass/Vol]Or dered By: Ana Shanks on 06-05-2022 MCHC (RBC) [Mass/Vol] 33.9 g/dL 32.5-35.6 [facility] MCV Auto (RBC) [Entitic vol] Ordered By: Ana Shanks on 06-05-2022 MCV (RBC) [Entitic vol] 94.9 fL 83.5-101 [facility] Monocytes Auto (Bld) [#/Vol] Ordered By: Ana Shanks on 06-05-2022 Monocytes (Bld) [#/Vol] 0.3 10*3/uL 0.0-0.8 [facility] Monocytes/100 WBC Auto (Bld) Ordered By: Ana Shanks on 06-05-2022 Monocytes/100 WBC (Bld) 7.5 % . [facility] Neutrophils Auto (Bld) [#/Vo l]Ordered By: Ana Shanks on 06-05-2022 Neutrophils (Bld) [#/Vol] 2.2 10*3/uL 1.8-7.7 [facility] Neutrophils/100 WBC Auto (Bl d)Ordered By: Ana Shanks on 06-05-2022 Neutrophils/100 WBC (Bld) 64.0 % . [facility] Platelet mean volume Auto (B ld) [Entitic vol]Ordered By: Ana Shanks on 06-05-2022 Platelet mean volume (Bld) [Entitic vol] 7.0 fL 6.6-10.1 [facility] Platelets Auto (Bld) [#/Vol] Ordered By: Ana Shanks on 06-05-2022 Platelets (Bld) [#/Vol] 263 10*3/uL 150-450 [facility] RBC Auto (Bld) [#/Vol]Ordere d By: Ana Shanks on 06-05-2022 RBC (Bld) [#/Vol] 4.38 10*6/uL 3.90-5.60 [facility] Albumin [Mass/volume] in Ser um or PlasmaOrdered By: Ana Shanks on 05-22-2022 Albumin [Mass/Vol] 4.2 g/dL 3.2-5.5 [facility] Basophils Auto (Bld) [#/Vol] Ordered By: Ana Shanks on 05-22-2022 Basophils (Bld) [#/Vol] 0.0 10*3/uL 0.0-0.2 [facility] Basophils/100 WBC Auto (Bld) Ordered By: Ana Shanks on 05-22-2022 Basophils/100 WBC (Bld) 0.6 % . [facility] Cholesterol [Mass/volume] in Serum or PlasmaOrdered By: Ana Shanks on 05-22-2022 Cholesterol [Mass/Vol] 218 mg/dL 140-200 [facility] Comment on above: Chol less than 200 m g/dl low riskChol 201-239 mg/dl borderline riskChol 240 mg/dl and greater high risk Cholesterol in LDL Calc [Mas s/Vol]Ordered By: Ana Shanks on 05-22-2022 Cholesterol in LDL [Mass/Vol] 141 mg/dL 0-100 [facility] Comment on above: LDL ATP III CLASSIFI CATIONLDL less than 100 mg/dL OptimalLDL 100-129 mg/dL Near or above optimalLDL 130-159 mg/dL Borderline highLDL 160-189 mg/dL HighLDL greater than 189 mg/dL Very high Cholesterol in VLDL Calc [Ma ss/Vol]Ordered By: Ana Shanks on 05-22-2022 Cholesterol in VLDL [Mass/Vol] 15 mg/dL [facility] Creatinine and Glomerular fi ltration rate.predicted panel (S/P/Bld)Ordered By: Ana Shanks on 05-22-2022 Creatinine [Mass/Vol] 0.95 mg/dL 0.64-1.27 [facility] Eosinophils Auto (Bld) [#/Vo l]Ordered By: Ana Shanks on 05-22-2022 Eosinophils (Bld) [#/Vol] 0.0 10*3/uL 0.0-0.45 [facility] Eosinophils/100 WBC Auto (Bl d)Ordered By: Ana Shanks on 05-22-2022 Eosinophils/100 WBC (Bld) 1.2 % . [facility] Erythrocyte distribution wid th Auto (RBC) [Ratio]Ordered By: Ana Shanks on 05-22-2022 Erythrocyte distribution width (RBC) [Ratio] 12.7 % 12.0-14.8 [facility] Estimated glomerular filtrat ion rate (GFR) non- AmericanOrdered By: Ana Shanks on 05-22-2022 GFR/1.73 sq M.predicted among non-blacks MDRD (S/P/Bld) [Vol rate/Area] > 60 mL/Min [facility] Globulin Calc (S) [Mass/Vol] Ordered By: Ana Shanks on 05-22-2022 Globulin (S) [Mass/Vol] 2.4 g/dL [facility] Hematocrit Auto (Bld) [Volum e fraction]Ordered By: Ana Shanks on 05-22-2022 Hematocrit (Bld) [Volume fraction] 45.7 % 38.8-50.0 [facility] Hemoglobin [Mass/volume] in BloodOrdered By: Ana Shanks on 05-22-2022 Hemoglobin (Bld) [Mass/Vol] 15.1 g/dL 13.0-17.0 [facility] Laboratory - Hematology and Cell countsOrdered By: Ana Shanks on 05-22-2022 Nucleated RBC/100 WBC (Bld) [Ratio] 0.2 % 0-0.5 [facility] Leukocytes [#/volume] in Blo od by Automated countOrdered By: Ana Shanks on 05-22-2022 WBC (Bld) [#/Vol] 3.5 10*3/uL 4.5-11.0 [facility] Lymphocytes Auto (Bld) [#/Vo l]Ordered By: Ana Shanks on 05-22-2022 Lymphocytes (Bld) [#/Vol] 1.1 10*3/uL 1.00-4.8 [facility] Lymphocytes/100 WBC Auto (Bl d)Ordered By: Ana Shanks on 05-22-2022 Lymphocytes/100 WBC (Bld) 32.5 % . [facility] MCH Auto (RBC) [Entitic mass ]Ordered By: Ana Shanks on 05-22-2022 MCH (RBC) [Entitic mass] 31.8 pg 27.5-35.2 [facility] MCHC Auto (RBC) [Mass/Vol]Or dered By: Ana Shanks on 05-22-2022 MCHC (RBC) [Mass/Vol] 33.0 g/dL 32.5-35.6 [facility] MCV Auto (RBC) [Entitic vol] Ordered By: Ana Shanks on 05-22-2022 MCV (RBC) [Entitic vol] 96.2 fL 83.5-101 [facility] Monocytes Auto (Bld) [#/Vol] Ordered By: Ana Shanks on 05-22-2022 Monocytes (Bld) [#/Vol] 0.3 10*3/uL 0.0-0.8 [facility] Monocytes/100 WBC Auto (Bld) Ordered By: Ana Shanks on 05-22-2022 Monocytes/100 WBC (Bld) 8.3 % . [facility] Neutrophils Auto (Bld) [#/Vo l]Ordered By: Ana Shanks on 05-22-2022 Neutrophils (Bld) [#/Vol] 2.0 10*3/uL 1.8-7.7 [facility] Neutrophils/100 WBC Auto (Bl d)Ordered By: Ana Shanks on 05-22-2022 Neutrophils/100 WBC (Bld) 57.4 % . [facility] No Panel InformationOrdered By: Ana Shanks on 05-22-2022 Estimated GFR () > 60 mL/Min [facility] Comment on above: GFR estimated refere nce range: According to KDOQI guidelines, <60 ml/min/1.73m2 is sufficient to diagnose a patient with chronic kidney disease. Pharmacy Creatinine Clearance (Chem N/A [facility] Prostate Specific Antigen Screen 2.110 ng/mL 0.000-4.000 [facility] Platelet mean volume Auto (B ld) [Entitic vol]Ordered By: Ana Shanks on 05-22-2022 Platelet mean volume (Bld) [Entitic vol] 7.1 fL 6.6-10.1 [facility] Platelets Auto (Bld) [#/Vol] Ordered By: Ana Shanks on 05-22-2022 Platelets (Bld) [#/Vol] 276 10*3/uL 150-450 [facility] Protein [Mass/volume] in Ser um or PlasmaOrdered By: Ana Shanks on 05-22-2022 Protein [Mass/Vol] 6.6 g/dL 6.1-7.9 [facility] RBC Auto (Bld) [#/Vol]Ordere d By: Ana Shanks on 05-22-2022 RBC (Bld) [#/Vol] 4.75 10*6/uL 3.90-5.60 [facility] Serum or plasma alanine bueno otransferase measurement without P-5'-P (enzymatic activiOrdered By: Ana Shanks on 05-22-2022 ALT No additional P-5'-P [Catalytic activity/Vol] 18 U/L 10-60 [facility] Serum or plasma albumin/glob ulin mass ratioOrdered By: Ana Shanks on 05-22-2022 Albumin/Globulin [Mass ratio] 1.8 {ratio} [facility] Serum or plasma alkaline joselo sphatase measurement (enzymatic activity/volume)Ordered By: Ana Shanks on 05-22-2022 ALP [Catalytic activity/Vol] 36 U/L 32-92 [facility] Serum or plasma anion gap de terminationOrdered By: Ana Shanks on 05-22-2022 Anion gap [Moles/Vol] 13.7 mmol/L 6.0-15.0 [facility] Serum or plasma aspartate am inotransferase measurement (enzymatic activity/volume)Ordered By: Ana Shanks on 05-22-2022 AST [Catalytic activity/Vol] 21 U/L 10-42 [facility] Serum or plasma calcium melissa urement (mass/volume)Ordered By: Ana Shanks on 05-22-2022 Calcium [Mass/Vol] 9.5 mg/dL 8.2-10.2 [facility] Serum or plasma chloride aramis surement (moles/volume)Ordered By: Ana Shanks on 05-22-2022 Chloride [Moles/Vol] 100 mmol/L 95-114 [facility] Serum or plasma glucose melissa urement (mass/volume)Ordered By: Ana Shanks on 05-22-2022 Glucose [Mass/Vol] 120 mg/dL 70-100 [facility] Comment on above: ADA recommended refe rence rangeRandom Glucose Reference Range is dependent on time and content of last meal. Glucose of more than 200 mg/dL in a nonstressed, ambulatory subject supports the diagnosis of Diabetes Mellitus. Serum or plasma high density lipoprotein (HDL) cholesterol measurementOrdered By: Ana Shanks on 05-22-2022 Cholesterol in HDL [Mass/Vol] 61 mg/dL 29-71 [facility] Comment on above: HDL CHOL ATP-III CLA SSIFICATION Cardiovascular RiskHDL > or equal to 60 mg/dL LOWHDL < 40 mg/dL HIGH Serum or plasma potassium me asurement (moles/volume)Ordered By: Ana Shanks on 05-22-2022 Potassium [Moles/Vol] 4.1 mmol/L 3.5-5.1 [facility] Serum or plasma sodium measu rement (moles/volume)Ordered By: Ana Shanks on 05-22-2022 Sodium [Moles/Vol] 138 mmol/L 136-146 [facility] Serum or plasma total biliru bin measurement (mass/volume)Ordered By: Ana Shanks on 05-22-2022 Bilirubin [Mass/Vol] 0.7 mg/dL 0.3-1.2 [facility] Serum or plasma total carbon dioxide measurement (moles/volume)Ordered By: Ana Shanks on 05-22-2022 CO2 [Moles/Vol] 28.4 mmol/L 22.0-30.0 [facility] Serum or plasma total choles terol/high density lipoprotein (HDL) cholesterol mass ratOrdered By: Ana Shanks on 05-22-2022 Cholesterol.total/Choles terol in HDL [Mass ratio] 3.6 {ratio} <5.0 [facility] Serum or plasma urea nitroge n measurement (mass/volume)Ordered By: Ana Shanks on 05-22-2022 Urea nitrogen [Mass/Vol] 11 mg/dL 9-23 [facility] TSH DL <= 0.005 mIU/L QnOrde red By: Ana Shanks on 05-22-2022 TSH Qn 1.63 m[IU]/L 0.45-5.33 [facility] Thyroxine (T4) free [Mass/vo lume] in Serum or PlasmaOrdered By: Ana Shanks on 05-22-2022 Free T4 [Mass/Vol] 0.84 ng/dL 0.61-1.12 [facility] Triglyceride [Mass/volume] i n Serum or PlasmaOrdered By: Ana Shanks on 05-22-2022 Triglyceride [Mass/Vol] 79 mg/dL 35-149 [facility] Comment on above: TRIG ATP III CLASSIF ICATIONTRIG less than 150 mg/dL NormalTRIG 150-199 mg/dL Borderline highTRIG 200-500 mg/dL High TRIG greater than 500 mg/dL Very highStandard traceable to the Center for Disease Conrtrol and Prevention (CDC) test method. Vital Signs Date Time Vital Sign Value Performing Clinician Facility 07-03-2022 15:30-0500 Body height 185.42 cm Marcell Brown Other [facility] Other 07-03-2022 15:30-0500 Body mass index (BMI) [Ratio] 23.68 kg/m2 Marcell Brown Other [facility] Other 07-03-2022 15:30-0500 Body temperature 99.5 [degF] Marcell Brown Other [facility] Other 07-03-2022 15:30-0500 Body weight 81.42 kg Marcell Brown Other [facility] Other 07-03-2022 15:30-0500 Diastolic blood pressure 69 mm[Hg] Marcell Brown Other [facility] Other 07-03-2022 15:30-0500 SaO2% (BldA) [Mass fraction] 98 % Marcell Brown Other [facility] Other 07-03-2022 15:30-0500 Systolic blood pressure 106 mm[Hg] Marcell Brown Other [facility] Other 07-02-2022 09:27-0500 Body temperature 97.8 [degF] MD Nikhil Casiano Work Phone: [facility] 07-02-2022 09:27-0500 Body weight 80.73 kg MD Nikhil Casiano Work Phone: [facility] 07-02-2022 09:27-0500 Diastolic blood pressure 83 mm[Hg] MD Nikhil Casiano Work Phone: [facility] 07-02-2022 09:27-0500 Heart rate 56 /min MD Nikhil Casiano Work Phone: [facility] 07-02-2022 09:27-0500 Respiratory rate 16 /min MD Nikhil Casiano Work Phone: [facility] 07-02-2022 09:27-0500 SaO2% (BldA) [Mass fraction] 98 % MD Nikhil Casiano Work Phone: [facility] 07-02-2022 09:27-0500 Systolic blood pressure 122 mm[Hg] MD Nikhil Casiano Work Phone: [facility] 06-11-2022 09:22-0400 Body temperature 98 [degF] MD Nikhil Casiano Work Phone: [facility] 06-11-2022 09:22-0400 Body weight 81.19 kg MD Nikhil Casiano Work Phone: [facility] 06-11-2022 09:22-0400 Diastolic blood pressure 87 mm[Hg] MD Nikhil Casiano Work Phone: [facility] 06-11-2022 09:22-0400 Heart rate 54 /min MD Nikhil Casiano Work Phone: [facility] 06-11-2022 09:22-0400 Respiratory rate 16 /min MD Nikhil Casiano Work Phone: [facility] 06-11-2022 09:22-0400 SaO2% (BldA) [Mass fraction] 100 % MD Nikhil Casiano Work Phone: [facility] 06-11-2022 09:22-0400 Systolic blood pressure 139 mm[Hg] MD Nikhil Casiano Work Phone: [facility] 06-11-2022 09:03-0400 Body height 185.42 cm MD Nikhil Casinao Work Phone: [facility] Encounters Encounter Date Encounter Type Care Provider Facility Start: 08-16-2023 End: 08-17-2023 ambulatory MISTY DAY Not Available Start: 07-03-2022 End: 07-03-2022 Patient encounter procedure MD Nikhil Casiano Work Phone: [facility] Start: 07-03-2022 End: 07-03-2022 ambulatory MD Nikhil Casiano Work Phone: [facility] Work Phone: Start: 07-03-2022 Office outpatient ne w 30 minutes Marcell Brown [facility] Start: 07-02-2022 End: 07-02-2022 ambulatory MD Nikhil Casiano Work Phone: [facility] Work Phone: Start: 07-02-2022 End: 07-02-2022 Registered Recurring MD Nikhil Casiano Work Phone: [facility] Start: 06-18-2022 End: 06-18-2022 Patient encounter procedure MD Nikhil Casiano Work Phone: [facility] Start: 06-11-2022 End: 06-11-2022 ambulatory MD Nikhil Casiano Work Phone: [facility] Work Phone: Start: 06-11-2022 End: 06-11-2022 Registered Recurring MD Nikhil Casiano Work Phone: [facility] Start: 06-05-2022 End: 06-05-2022 ambulatory MD Nikihl Casiano Work Phone: [facility] Work Phone: Start: 06-05-2022 End: 06-05-2022 Patient encounter procedure MD Nikhil Casiano Work Phone: [facility] Start: 05-22-2022 End: 05-22-2022 Patient encounter procedure MD Nikhil Casiano Work Phone: [facility] Start: 05-13-2022 End: 05-13-2022 Patient encounter procedure MD Nikhil Casiano Work Phone: [facility] Procedures Date Procedure Procedure Detail Performing Clinician Start: 05-13-2022 Plain chest X-ray MD Tal Casiano Work Phone: Plan of Treatment Date Care Activity Detail Author Vitamin B12 measurement [facility] Payers Date Payer Category Payer Self-pay [id number] 2021 Unknown [id number] 1965 Unknown [id number] 1965 Unknown [id number] Private Health Insurance [employer] [id number] Unknown [id number] Social History Date Type Detail Facility Tobacco smoking status NHIS Unknown if ever smoked [facility] Work Phone: Start: 1965 Sex Assigned At Male [facility] Sex Assigned At Sex Assigned At [facility] [employer] Other Evaluation note 07-03-2022 Note Date & [...] changes in symptoms and/or problems with treatment [facility] Other Consult note 06-11-2022 Note Date & Type Note Facility 06-11-2022 Consult note Note Date/Time June 11, 2022 2:51pm [facility] [place] [address] Hem/Onc Consult Note - OP Signed Patient: John Hua MR#: [id number] : 1965 Acct:[id number] Age/Sex: 56 / M Type: REG RCR Copies to: MD Ana Jackson APRN, CNP~ HPI Date/Time of Service: Date of Service: 06/11/2022 Time of Service: 14:46 Referring Provider/PCP: Referring Provider: Ana Shanks APRN, NP-C PCP: Nikhil Casiano MD - History of [...] or significant intake of nonsteroidal anti-inflammatory medications PMF - Medical History Medical History: Medical History [...] no indication or need to continue with government affairs manager surveillance. His PCP can keep an eye [...] for coordination of care (as documented) and [id number] counseling of patient and/or family. Dictated By: Natan Tate MD DD/ [id number] Signed By: <Electronically signed by Natan Tate MD> 06/11/22 1459 [facility] Work Phone: Evaluation note Note Date & Type Note Facility Evaluation note No assessment information availa ble [facility] Work Phone: Evaluation note Note Date & Type Note Facility Evaluation note Diagnosis Onset Date Leucopenia acute [facility] Work Phone: Evaluation note Note Date & Type Note Facility Evaluation note Diagnosis Onset Date B12 deficiency acute Leucopenia acute [facility] Work Phone: History general Narrative - Reported Note Date & Type Note Facility History general Narrative - Reported Type Medical History Pneumothorax Medical History Hyperlipidemia Surgical History Back Surgery Surgical History Hammertoe Surgery Surgical History neck Surgical History shoulder Surgical History lung Surgical History toe Hospitalization History see above 2009 [facility] Other Progress note Note Date & Type Note Facility Progress note Note Date/Time July 02, 2022 9:30am [facility] [place] [address] Hem/Onc Follow Up Note - OP Signed Patient: John Hua MR#: [id number] : 1965 Acct:[id number] Age/Sex: 56 / M Type: REG RCR Copies to: MD Ana Jackson APRN, SALES TEAM LEADER~ Subjective Date/Time of Service: Date of Service: [...] no indication or need to continue with government affairs manager surveillance. His PCP can keep an eye [...] us PRN, we recommend he initiate monthly [id number] with his primary care office. - Time with Patient Coordination of Care & Counseling Time: Greater than 50% of time spent with patient was for coordination of care (as documented) and [id number] counseling of patient and/or family. Dictated By: Avril Haines APRN DD/ 9 Signed By: <Electronically signed by JASON Haines> 07/02/2257 [facility] Work Phone: Chief Complaint and Reason for [...] MD Primary Care Provider Active JASON Nick Attending Provider Active Team Status: Active Member Role Status Dates Nikhil Casiano MD Primary Care Provider Active Team Status: Active Member Role Status Dates Nikhil Casiano MD Primary Care Provider Active Natan Tate MD Attending Provider Active Ana Kiepert , COSMETIC ACCOUNT COORDINATOR RETAIL LEADER-C Referring Provider Active Team Status: Inactive Member [...] section and content) DATE CREATED AUTHOR 08/09/2023 [facility] DATE CREATED AUTHOR 'Lupe ORTIZ 08/21/2023 [facility] EPIC FOR RECORDS PERTAINING TO PATIENTS [...] BE BASED ON THE PRIMARY CLINICAL RECORDS. [employer] provides no warranty or guarantee of the accuracy or completeness of information in this document.
== END 2023-12-02 09:44 | disposition home or self-care (01) ==
LOC: EC 09:43
PROVIDERS: Visit Provider Podiatrist Foot & Ankle Surgery
DX: M20.11 Hallux valgus (acquired), right foot (principal); S92.351G Displaced fracture of fifth metatarsal bone, right foot, subsequent encounter for fracture with delayed healing
CPT/HCPCS: 73630